=== PATIENT | female | born 1965 | race African-American/Black ===

== ENCOUNTER 2016-10-31 14:06 | Emergency (ER) | payer MEDICAID ==
--- NOTE | 2016-10-31 16:20 | ER Document Report ---
ED Fall - General Chief Complaint: Fall Stated Complaint: FALL TOE PAIN Time Seen by Provider: 10/31/16 15:56 Mode of Arrival: Ambulatory Information source: Patient Notes: 51-year-old female presents to ED for pain and swelling to the right fifth toe and right thumb. She states she fell a week ago and neither 1 of them are improving. She states her most painful swollen and bruised. She states she cannot take ibuprofen as she is allergic to it. She does have an over-the- counter splint that she bought on her right thumb. TRAVEL OUTSIDE OF THE [place] IN LAST 30 DAYS: No - HPI Occurred: Last week Where: Outdoors Context: Tripped Associated symptoms: None Location of injury/pain: Finger - Right thumb, Other - Right fifth toe Quality of pain: Achy, Throbbing Severity: Moderate Pain Level: 3 - Related data Allergies/Adverse Reactions: morphine [Morphine] Allergy (Intermediate, Verified 10/31/16 14:13) Hives ibuprofen [Ibuprofen] Allergy (Verified 10/31/16 14:13) propoxyphene napsylate [From Darvocet-N 100] Allergy (Verified 10/31/16 14:13) Hives Past Medical History - General Information source: Patient - Social History Smoking Status: Former Smoker Cigarette use (# per day): No Chew tobacco use (# tins/day): No Smoking Education Provided: No Frequency of alcohol use: Social Drug Abuse: None Occupation: none Lives with: Alone Family History: CAD, COPD, CVA, DM, Hyperlipidemia, Hypertension, Malignancy, Thyroid Disfunction - Past Medical History Cardiac Medical History: Reports: Hx Hypercholesterolemia, Hx Hypertension Pulmonary Medical History: Reports: Hx Bronchitis EENT Medical History: Reports: None Neurological Medical History: Reports: Hx Cerebrovascular Accident - anuerysm x 2, subarachnoid hemorrhage, Hx Migraine, Other - Aneurysm 3 Endocrine Medical History: Reports: Hx Diabetes Mellitus Type 2 Renal/ Medical History: Reports: None Malignancy Medical History: Reports: Hx Cervical Cancer GI Medical History: Reports: Hx Gastroesophageal Reflux Disease, Hx Colonoscopy , Hx Endoscopy Musculoskeltal Medical History: Reports Hx Arthritis, Reports Hx Fibromyalgia, Reports Hx Musculoskeletal Trauma Skin Medical History: Reports None Psychiatric Medical History: Reports: Hx Anxiety, Hx Depression, Hx Post Traumatic Stress Disorder Traumatic Medical History: Reports: None Infectious Medical History: Reports: None Past Surgical History: Reports: Hx Gynecologic Surgery - ablation, Hx Hysterectomy, Hx Neurologic Surgery, Hx Tubal Ligation - Immunizations Immunizations up to date: No Hx Diphtheria, Pertussis, Tetanus Vaccination: No Review of Systems - Review of Systems Constitutional: No symptoms reported EENT: No symptoms reported Cardiovascular: No symptoms reported Respiratory: No symptoms reported Gastrointestinal: No symptoms reported Genitourinary: No symptoms reported Female Genitourinary: No symptoms reported Musculoskeletal: Other - Swelling to right thumb and right fifth toe Skin: No symptoms reported Hematologic/Lymphatic: No symptoms reported Neurological/Psychological: No symptoms reported -: Yes All other systems reviewed and negative Physical Exam - Vital signs Vitals: Temp Pulse Resp BP Pulse Ox 98.4 F 69 16 158/87 H 100 10/31/16 14:11 10/31/16 14:11 10/31/16 14:11 10/31/16 14:11 10/31/16 14:11 Interpretation: Normal - General General appearance: Appears well, Alert - HEENT Head: Normocephalic, Atraumatic Eyes: Normal Pupils: PERRL - Respiratory Respiratory status: No respiratory distress Chest status: Nontender Breath sounds: Normal Chest palpation: Normal - Cardiovascular Rhythm: Regular Heart sounds: Normal auscultation Murmur: No - Abdominal Inspection: Normal Distension: No distension Bowel sounds: Normal Tenderness: Nontender Organomegaly: No organomegaly - Back Back: Normal, Nontender - Extremities General upper extremity: Normal color, Normal ROM, Normal temperature General lower extremity: Normal color, Normal ROM, Normal temperature, Normal weight bearing. No: Deondre's sign Hand: Tender - Right thumb, Swelling - Right thumb, Other - Right thumb Foot: Tender - Right fifth toe, Ecchymosis - Right fifth toe, Edema - Right fifth toe - Neurological Neuro grossly intact: Yes Cognition: Normal Orientation: AAOx4 Allyson Coma Scale Eye Opening: Spontaneous Allyson Coma Scale Verbal: Oriented Allyson Coma Scale Motor: Obeys Commands Dexter Coma Scale Total: 15 Speech: Normal Motor strength normal: LUE, RUE, LLE, RLE Sensory: Normal - Psychological Associated symptoms: Normal affect, Normal mood - Skin Skin Temperature: Warm Skin Moisture: Dry Skin Color: Normal Course - Vital Signs Vital signs: Temp Pulse Resp BP Pulse Ox 98.2 F 130 H 15 161/90 H 100 10/31/16 18:21 10/31/16 18:21 10/31/16 18:21 10/31/16 18:21 10/31/16 18:21 - Diagnostic Test Radiology reviewed: Image reviewed, Reports reviewed Procedures - Immobilization Right Toe 5th digit Time completed: 17:51 Immobilizer type: Other - yosvany taped 4th and 5th toe for fracture Performed by: Provider Post-Proc Neuro Vasc Exam: Normal Alignment checked and good: Yes Discharge - Discharge Clinical Impression: Fracture of fifth toe, right, closed Qualifiers: Encounter type: initial encounter Qualified Code(s): S92.501A - Displaced unspecified fracture of right lesser toe(s), initial encounter for closed fracture Condition: Stable Disposition: HOME, SELF-CARE Additional Instructions: Fractured Toe You have fractured your toe. Although this fracture doesn't need a cast or splint, emergency evaluation was needed to assess the straightness of the bones and joints. Reduction ("setting") is necessary for toe fractures which are crooked or twisted. A toe fracture will heal in about three weeks. Usually, the fractured toe is taped to the next toe. The second toe acts as a moving splint to protect the broken one. Ice and elevation help during the first 48 hours. You may need crutches at first if walking is painful. When you begin walking, be careful NOT to do things that hurt. If weight bearing is not comfortable within a few days, you may require a special shoe, walking boot, or cast. Call the doctor or return at once if severe swelling, severe pain, or numbness develop in the toe, or if you suspect you may have re-injured it. ICE & ELEVATION: Apply ice packs frequently against the painful area. Many different schedules are recommended, such as "20 minutes on, 20 minutes off" or "one hour ice, two hours rest." If you need to work, you may need to go longer between ice treatments. You should plan to have the area ice packed AT LEAST one- fourth of the time. The ice should be applied over the wrap, tape, or splint, or over a layer of cloth -- not directly against the skin. Some ice bags have a built-in cloth and can be put directly on the skin. Your injured part should be elevated as much as possible over the next 48 hours. Try to keep the injury above the level of the heart. Avoid use of the injured area. Elevation and rest will decrease the swelling. USE OF [id number] IBUPROFEN: Ibuprofen (Advil, Nuprin, Medipren, Motrin IB) is a medication for fever and pain control. In addition, it has anti- inflammatory effects which may be beneficial, especially in the treatment of injuries. It's best to take ibuprofen with food. Persons with ulcer disease or allergy to aspirin should notify their physician of this before taking ibuprofen. Ibuprofen can be given every four to six hours, for a total of four doses daily. Age Pain or fever dose Antiinflammatory dose 6-8 yr 200 mg (1 tab) 200 mg (1 tab) 9-11 yr 200 mg (1 tab) 200-400 mg (1-2 tab) 11-14 yr 200-400 mg (1-2 tab) 400 mg (2 tab) 15-adult 400 mg (2 tab) 600 mg (3 tab) FOLLOW-UP CARE: If you have been referred to a physician for follow-up care, call the physician s office for an appointment as you were instructed or within the next two days. If you experience worsening or a significant change in your symptoms, notify the physician immediately or return to the Emergency Department at any time for re-evaluation. Forms: Elevated Blood Pressure Referrals: EDWARDO LIRIANO DO [ACTIVE STAFF] - Follow up as needed
--- NOTE | 2016-10-31 16:40 | RADIOLOGY REPORT (SQ) ---
EXAM DESCRIPTION: FINGER RIGHT COMPLETED DATE/TIME: 10/31/2016 4:30 pm REASON FOR STUDY: right thumb pain and injury COMPARISON: None. NUMBER OF VIEWS: Three views. TECHNIQUE: AP, lateral, and oblique images acquired of the right thumb. LIMITATIONS: None. FINDINGS: MINERALIZATION: Normal. BONES: No acute fracture or dislocation. No worrisome bone lesions. SOFT TISSUES: No soft tissue swelling. No foreign body. OTHER: No other significant finding. IMPRESSION: NO RADIOGRAPHIC EVIDENCE OF ACUTE INJURY. COMMENT: SITE OF TRAUMA/COMPLAINT MARKED/STAMP COMPLETED: NO. TECHNICAL DOCUMENTATION: JOB ID: [id number] [employer]- All Rights Reserved
--- NOTE | 2016-10-31 16:53 | RADIOLOGY REPORT (SQ) ---
EXAM DESCRIPTION: TOE RIGHT COMPLETED DATE/TIME: 10/31/2016 4:30 pm REASON FOR STUDY: right 5th toe pain and injury COMPARISON: None. NUMBER OF VIEWS: Two views. TECHNIQUE: AP and oblique images acquired of the right fifth toe. LIMITATIONS: None. FINDINGS: MINERALIZATION: Normal. BONES: Nondisplaced fracture midshaft proximal 5th phalanx. JOINTS: No effusions. SOFT TISSUES: No soft tissue swelling. No foreign body. OTHER: No other significant finding. IMPRESSION: Nondisplaced fracture proximal 5th phalanx. COMMENT: SITE OF TRAUMA/COMPLAINT MARKED/STAMP COMPLETED: NO. TECHNICAL DOCUMENTATION: JOB ID: [id number] [employer]- All Rights Reserved
[2016-10-31 18:24] VITALS: BP 161/90
== END 2016-10-31 18:24 | disposition home or self-care (01) ==
LOC: ER 14:06
DX: S92.501A Displaced unspecified fracture of right lesser toe(s), initial encounter for closed fracture (principal); M79.674 Pain in right toe(s); W19.XXXA Unspecified fall, initial encounter; Z87.891 Personal history of nicotine dependence
CPT/HCPCS: 99283

== ENCOUNTER 2016-12-12 18:54 | Emergency (ER) | payer MEDICAID ==
[2016-12-12 19:13] VITALS: BP 140/95
--- NOTE | 2016-12-12 21:02 | EKG REPORT ---
SEVERITY:- BORDERLINE ECG - SINUS RHYTHM PROBABLE LEFT ATRIAL ABNORMALITY BORDERLINE R WAVE PROGRESSION, ANTERIOR LEADS : Confirmed by: Radha Branch MD 12-Dec-2016 21:02:05
== END 2016-12-13 01:01 | disposition left against medical advice (07) ==
LOC: ER 18:54
DX: Z53.9 Procedure and treatment not carried out, unspecified reason (principal); R07.9 Chest pain, unspecified
CPT/HCPCS: 93005; 93010

== ENCOUNTER 2016-12-13 00:57 | Emergency (ER) | payer MEDICAID ==
[2016-12-13 01:11] VITALS: BP 150/82
[2016-12-13] MEDS ORDERED: ACETAMINOPHEN 325 MG TABLET PO ONE (01:52)
--- NOTE | 2016-12-13 02:03 | ER Document Report ---
ED General - General Chief Complaint: Headache Stated Complaint: HEADACHE Time Seen by Provider: 12/13/16 01:38 TRAVEL OUTSIDE OF THE [place] IN LAST 30 DAYS: No - HPI Notes: Patient is a 51-year-old female who presents to the ED complaining of nasal congestion/discharge, dry cough that is nonproductive, fevers, body ache, and chills 2 days. Patient states that she has also had an intermittent headache. Patient states that her headache resembles the same headaches that she has had in the past since discovery and management of 2 out of the 3 brain aneurysms. Patient states that she does have routine follow-up for her remaining aneurysm that they could not repair in her brain. She is still eating and drinking without any difficulties. She has not been using any over- the-counter meds for her symptoms. Denies any headache, fever, head injury, neck pain, changes in vision/speech/mentation/hearing, sore throat, chest pain, palpitations, syncope, shortness of breath, wheeze, dyspnea, abdominal pain, nausea/vomiting/diarrhea, urinary retention, dysuria, hematuria, loss of control of bowel or bladder, numbness/tingling, saddle anesthesia, muscle paralysis/weakness, or rash. - Related Data Allergies/Adverse Reactions: morphine [Morphine] Allergy (Intermediate, Verified 12/12/16 19:10) Hives ibuprofen [Ibuprofen] Allergy (Verified 12/12/16 19:10) propoxyphene napsylate [From Darvocet-N 100] Allergy (Verified 12/12/16 19:10) Hives Past Medical History - Social History Smoking Status: Unknown if Ever Smoked Family History: CAD, COPD, CVA, DM, Hyperlipidemia, Hypertension, Malignancy, Thyroid Disfunction Patient has suicidal ideation: No Patient has homicidal ideation: No - Past Medical History Cardiac Medical History: Reports: Hx Hypercholesterolemia, Hx Hypertension Pulmonary Medical History: Reports: Hx Bronchitis Neurological Medical History: Reports: Hx Cerebrovascular Accident - anuerysm x 2, subarachnoid hemorrhage, Hx Migraine Endocrine Medical History: Reports: Hx Diabetes Mellitus Type 2 Renal/ Medical History: Denies: Hx Peritoneal Dialysis Malignancy Medical History: Reports: Hx Cervical Cancer GI Medical History: Reports: Hx Gastroesophageal Reflux Disease, Hx Colonoscopy , Hx Endoscopy Musculoskeltal Medical History: Reports Hx Arthritis, Reports Hx Fibromyalgia, Reports Hx Musculoskeletal Trauma Psychiatric Medical History: Reports: Hx Anxiety, Hx Depression, Hx Post Traumatic Stress Disorder Past Surgical History: Reports: Hx Gynecologic Surgery - ablation, Hx Hysterectomy, Hx Neurologic Surgery, Hx Tubal Ligation - Immunizations Immunizations up to date: No Hx Diphtheria, Pertussis, Tetanus Vaccination: No Review of Systems - Review of Systems Notes: REVIEW OF SYSTEMS: CONSTITUTIONAL : see hpi EENT: Denies eye, ear, throat, or mouth pain or symptoms. Denies nasal or sinus congestion or discharge. Denies throat, tongue, or mouth swelling or difficulty swallowing. CARDIOVASCULAR: Denies chest pain. Denies palpitations or racing or irregular heart beat. Denies ankle edema. RESPIRATORY: see hpi GASTROINTESTINAL: Denies abdominal pain or distention. Denies nausea, vomiting , or diarrhea. Denies blood in vomitus, stools, or per rectum. Denies black, tarry stools. Denies constipation. GENITOURINARY: Denies difficulty urinating, painful urination, burning, frequency, blood in urine, or discharge. MUSCULOSKELETAL: see hpi. +muscle aches. SKIN: Denies rash, lesions or sores. NEUROLOGICAL: Denies confusion or altered mental status. Denies passing out or loss of consciousness. Denies dizziness or lightheadedness. Denies headache. Denies weakness or paralysis or loss of use of either side. Denies problems with gait or speech. Denies sensory loss, numbness, or tingling. ALL OTHER SYSTEMS REVIEWED AND NEGATIVE. Dictation was performed using [employer] voice recognition software Physical Exam - Vital signs Vitals: Temp Pulse Resp BP Pulse Ox 99.0 F 84 18 150/82 H 100 12/13/16 01:05 12/13/16 01:05 12/13/16 01:05 12/13/16 01:05 12/13/16 01:05 Notes: PHYSICAL EXAMINATION: GENERAL: Well-appearing, well-nourished and in no acute distress. A&Ox4 HEAD: Atraumatic, normocephalic. Non-tender. EYES: Pupils equal round and reactive to light, extraocular movements intact, sclera anicteric, conjunctiva are normal. Funduscopic unremarkable, but limited w/o dilatation of the eyes. ENT: EAC clear b/l. TM's intact b/l without erythema, fluid, or perforation. Nares patent and with clear discharge. oropharynx clear without exudates. No tonsilar hypertrophy or erythema. Moist mucous membranes. No sinus tenderness. Uvula midline. No palatine shift. No tongue protrusion. NECK: Normal range of motion, supple without lymphadenopathy. No rigidity/ meningismus. LUNGS: Breath sounds clear to auscultation bilaterally and equal. No wheezes rales or rhonchi. HEART: Regular rate and rhythm without murmurs, rubs, gallops. Musculoskeletal: Ext b/l: FROM to passive/active. Strength 5+/5. No focal deficits. Extremities: No cyanosis, clubbing, or edema b/l. Peripheral pulses 2+. Capillary refill less than 3 seconds. NEUROLOGICAL: NIH 0. MMSE intact. Cranial nerves grossly intact. Normal speech, normal gait. Normal sensory, motor exams. CHAR's intact. Pronator drift negative. Heel:reynolds, finger:nose wnl. PSYCH: Normal mood, normal affect. SKIN: Warm, Dry, normal turgor, no rashes or lesions noted. Course - Re-evaluation Re-evalutation: 12/13/16 03:03 Patient is an afebrile, well-hydrated, 51-year-old female who presents to the ED with a right lower lobe pneumonia. Vitals are stable. PE otherwise unremarkable. X-rays results as above. Rapid flu was negative. Tylenol was given p.o. today. I will send her home with a prescription for Levaquin to take as directed. Conservative measures otherwise for symptoms. Recheck with your PCM in 2-3 days. Return to the ED with any worsening/concerning symptoms otherwise as reviewed in discharge. Low suspicion for any acute glaucoma, temporal arteritis, meningitis, intracranial hemorrhage, ischemic stroke, ACS, PE, pneumothorax, pericarditis, dissection, sepsis, or fracture at this time. Patient is aware that his condition can change from initial presentation and that she needs to monitor symptoms closely for any acute changes. Patient is in agreement with discharge plan. - Vital Signs Vital signs: Temp Pulse Resp BP Pulse Ox 101.9 F H 84 18 150/82 H 100 12/13/16 01:49 12/13/16 01:05 12/13/16 01:05 12/13/16 01:05 12/13/16 01:05 Discharge - Discharge Clinical Impression: Right lower lobe pneumonia Qualifiers: Pneumonia type: due to unspecified organism Qualified Code(s): J18.1 - Lobar pneumonia, unspecified organism Condition: Stable Disposition: HOME, SELF-CARE Instructions: Headache ([facility]), Pneumonia ([facility]), Levofloxacin, Follow-Up Care ( [facility]) Additional Instructions: Maintain adequate fluid intake Take meds as directed tylenol as needed Monitor symptoms closely over the counter cold medication as needed for symptoms Humidified air may help F/u: with your PCM in 2-3 days for a recheck Return to the ED with any fever, worsening pain, chest pain, palpitations, syncope, worsening THOMPSON, neck pain/stiffness, changes in mentation/behavior/speech /vision/hearing, shortness of breath, wheezing, drooling, trouble swallowing/ breathing, abdominal pain, n/v/d, rash, or worsening/concerning symptoms otherwise. Prescriptions: Levofloxacin [Levaquin 750 mg Tablet] 750 mg PO DAILY #5 tablet Forms: Elevated Blood Pressure Referrals: [facility] [Provider Group] - Follow up as needed [facility] [Provider Group] - Follow up as needed [facility] [Provider Group] - Follow up as needed
--- NOTE | 2016-12-13 03:02 | RADIOLOGY REPORT (SQ) ---
EXAM DESCRIPTION: CHEST PA/LAT COMPLETED DATE/TIME: 12/13/2016 2:30 am REASON FOR STUDY: cough COMPARISON: None. EXAM PARAMETERS: NUMBER OF VIEWS: two views TECHNIQUE: Digital Frontal and Lateral radiographic views of the chest acquired. RADIATION DOSE: NA LIMITATIONS: none FINDINGS: LUNGS AND PLEURA: Small airspace patchiness of the right lower lobe. MEDIASTINUM AND HILAR STRUCTURES: No masses or contour abnormalities. HEART AND VASCULAR STRUCTURES: Heart normal size. No evidence for failure. BONES: No acute findings. HARDWARE: Right upper abdominal clips. OTHER: No other significant finding. IMPRESSION: Small right lower lobar pneumonia. TECHNICAL DOCUMENTATION: JOB ID: [id number] [employer]- All Rights Reserved
[2016-12-13] MEDS ORDERED: LEVOFLOXACIN 750 MG TABLET PO ONE (03:10)
== END 2016-12-13 03:57 | disposition home or self-care (01) ==
LOC: ER 00:57
DX: J18.1 Lobar pneumonia, unspecified organism (principal); R51 Headache; R09.81 Nasal congestion; E78.00 Pure hypercholesterolemia, unspecified; I10 Essential (primary) hypertension; E11.9 Type 2 diabetes mellitus without complications; Z88.6 Allergy status to analgesic agent; Z86.73 Personal history of transient ischemic attack (TIA), and cerebral infarction without residual deficits; Z85.41 Personal history of malignant neoplasm of cervix uteri; Z90.710 Acquired absence of both cervix and uterus
CPT/HCPCS: 99284; 87804; 71020; J3490 ×2

== ENCOUNTER 2016-12-13 16:10 | Emergency (ER) | payer MEDICAID ==
[2016-12-13 16:40] VITALS: BP 150/100
[2016-12-13] MEDS ORDERED: ONDANSETRON HCL INJ/PF 4 MG/2 ML SDV IV ONE (18:15)
[2016-12-13] MEDS ORDERED: HYDROMORPHONE HCL INJ/PF 2 MG/ML AMPULE IV ONE (18:15)
[2016-12-13] MEDS ORDERED: NORMAL SALINE 1000 ML 1,000 ML IV ONE (18:15)
--- NOTE | 2016-12-13 18:17 | ER Document Report ---
ED Medical Screen (RME) - General Chief Complaint: Breathing Difficulty Stated Complaint: BODY PAIN Time Seen by Provider: 12/13/16 18:15 Notes: Patient was seen and discharged this morning at approximately 4 AM. At that time she was diagnosed with pneumonia. She returns stating that she is having severe generalized body aches and nausea. She also states she is having diarrhea and is unable to control her urine. In addition she states that she is short of breath. TRAVEL OUTSIDE OF THE [place] IN LAST 30 DAYS: No - Related Data Allergies/Adverse Reactions: morphine [Morphine] Allergy (Intermediate, Verified 12/13/16 16:38) Hives ibuprofen [Ibuprofen] Allergy (Verified 12/13/16 16:38) propoxyphene napsylate [From Darvocet-N 100] Allergy (Verified 12/13/16 16:38) Hives Past Medical History - Social History Chew tobacco use (# tins/day): No Frequency of alcohol use: Occasional Drug Abuse: Marijuana - Past Medical History Cardiac Medical History: Reports: Hx Hypercholesterolemia, Hx Hypertension Pulmonary Medical History: Reports: Hx Bronchitis Neurological Medical History: Reports: Hx Cerebrovascular Accident - anuerysm x 2, subarachnoid hemorrhage, Hx Migraine Endocrine Medical History: Reports: Hx Diabetes Mellitus Type 2 Renal/ Medical History: Denies: Hx Peritoneal Dialysis Malignancy Medical History: Reports: Hx Cervical Cancer GI Medical History: Reports: Hx Gastroesophageal Reflux Disease, Hx Colonoscopy , Hx Endoscopy Musculoskeltal Medical History: Reports Hx Arthritis, Reports Hx Fibromyalgia, Reports Hx Musculoskeletal Trauma Psychiatric Medical History: Reports: Hx Anxiety, Hx Depression, Hx Post Traumatic Stress Disorder Past Surgical History: Reports: Hx Gynecologic Surgery - ablation, Hx Hysterectomy, Hx Neurologic Surgery, Hx Tubal Ligation - Immunizations Immunizations up to date: No Hx Diphtheria, Pertussis, Tetanus Vaccination: No Physical Exam - Vital signs Vitals: Temp Pulse Resp BP Pulse Ox 99.6 F 106 H 18 150/100 H 95 12/13/16 16:38 12/13/16 16:38 12/13/16 16:38 12/13/16 16:38 12/13/16 16:38 Course - Vital Signs Vital signs: Temp Pulse Resp BP Pulse Ox 99.6 F 106 H 18 150/100 H 95 12/13/16 16:38 12/13/16 16:38 12/13/16 16:38 12/13/16 16:38 12/13/16 16:38
--- NOTE | 2016-12-13 18:56 | RADIOLOGY REPORT (SQ) ---
EXAM DESCRIPTION: CHEST PA/LAT COMPLETED DATE/TIME: 12/13/2016 6:34 pm REASON FOR STUDY: fever/cough COMPARISON: 12/13/2016 EXAM PARAMETERS: NUMBER OF VIEWS: two views TECHNIQUE: Digital Frontal and Lateral radiographic views of the chest acquired. RADIATION DOSE: NA LIMITATIONS: none FINDINGS: LUNGS AND PLEURA: There is an increasing infiltrate in the right base posteriorly. MEDIASTINUM AND HILAR STRUCTURES: No masses or contour abnormalities. HEART AND VASCULAR STRUCTURES: Heart normal size. No evidence for failure. BONES: No acute findings. HARDWARE: None in the chest. OTHER: No other significant finding. IMPRESSION: Right lower lobe pneumonia. TECHNICAL DOCUMENTATION: JOB ID: [id number] [employer]- All Rights Reserved
== END 2016-12-13 19:00 | disposition left against medical advice (07) ==
LOC: ER 16:10
DX: R06.00 Dyspnea, unspecified (principal); M79.1 Myalgia; E78.00 Pure hypercholesterolemia, unspecified; I10 Essential (primary) hypertension; E11.9 Type 2 diabetes mellitus without complications; Z88.6 Allergy status to analgesic agent; Z86.73 Personal history of transient ischemic attack (TIA), and cerebral infarction without residual deficits; Z85.41 Personal history of malignant neoplasm of cervix uteri; Z90.710 Acquired absence of both cervix and uterus
CPT/HCPCS: 71020; 99284

== ENCOUNTER 2017-03-09 19:01 | Emergency (ER) | payer SELFPAY ==
[2017-03-09] MEDS ORDERED: PROMETHAZINE HCL INJ 25 MG/1 ML VIAL IV ONE (19:29)
[2017-03-09] MEDS ORDERED: NORMAL SALINE 1000 ML 1,000 ML IV ONE (19:29)
--- NOTE | 2017-03-09 19:31 | ER Document Report ---
ED Medical Screen (RME) - General Chief Complaint: Headache >24 hrs old Stated Complaint: HEADACHE Time Seen by Provider: 03/09/17 19:29 Notes: Patient states she has a history of a ruptured aneurysm as well as 2 other aneurysms that have been coiled. She states she has a third aneurysm that has not been coiled that is currently being watched with scans every year. She states she has headaches chronically but lately they have been worse. She states that she did recently lose her insurance and no longer has her Percocet or Xanax. She states she also has fibromyalgia and takes Percocet "for a lot of reasons". She states when she comes to the hospital she needs Phenergan and Dilaudid for her pain. TRAVEL OUTSIDE OF THE [place] IN LAST 30 DAYS: No - Related Data Allergies/Adverse Reactions: morphine [Morphine] Allergy (Intermediate, Verified 03/09/17 19:02) Hives ibuprofen [Ibuprofen] Allergy (Verified 03/09/17 19:02) propoxyphene napsylate [From Darvocet-N 100] Allergy (Verified 03/09/17 19:02) Hives Past Medical History - Social History Frequency of alcohol use: Occasional Drug Abuse: Marijuana - Past Medical History Cardiac Medical History: Reports: Hx Hypercholesterolemia, Hx Hypertension Pulmonary Medical History: Reports: Hx Bronchitis Neurological Medical History: Reports: Hx Cerebrovascular Accident - anuerysm x 2, subarachnoid hemorrhage, Hx Migraine Endocrine Medical History: Reports: Hx Diabetes Mellitus Type 2 Renal/ Medical History: Denies: Hx Peritoneal Dialysis Malignancy Medical History: Reports: Hx Cervical Cancer GI Medical History: Reports: Hx Gastroesophageal Reflux Disease, Hx Colonoscopy , Hx Endoscopy Musculoskeltal Medical History: Reports Hx Arthritis, Reports Hx Fibromyalgia, Reports Hx Musculoskeletal Trauma Psychiatric Medical History: Reports: Hx Anxiety, Hx Depression, Hx Post Traumatic Stress Disorder Past Surgical History: Reports: Hx Gynecologic Surgery - ablation, Hx Hysterectomy, Hx Neurologic Surgery, Hx Tubal Ligation - Immunizations Immunizations up to date: No Hx Diphtheria, Pertussis, Tetanus Vaccination: No Physical Exam - Vital signs Vitals: Temp Pulse Resp BP Pulse Ox 98.5 F 67 18 189/96 H 100 03/09/17 19:07 03/09/17 19:07 03/09/17 19:07 03/09/17 19:07 03/09/17 19:07 Course - Vital Signs Vital signs: Temp Pulse Resp BP Pulse Ox 98.5 F 67 18 189/96 H 100 03/09/17 19:07 03/09/17 19:07 03/09/17 19:07 03/09/17 19:07 03/09/17 19:07
[2017-03-09] MEDS ORDERED: METOCLOPRAMIDE HCL INJ/PF 10 MG/2 ML SDV IV ONE (19:41)
--- NOTE | 2017-03-09 20:32 | ER Document Report ---
ED General - General Chief Complaint: Headache >24 hrs old Stated Complaint: HEADACHE Time Seen by Provider: 03/09/17 19:29 Notes: 11-year-old female with chronic headache syndromes as well as a history of ruptured aneurysm now coiled presents with gradual onset headache intermittent for 10 days sometimes better with Excedrin. Nonpulsatile. Also has neck pain but no stiffness. No fevers. When I come in the room she is eating chicken. She has some nausea. Incidentally, she stopped taking Xanax and oxycodone secondary to switching practices for pain management about a week ago. TRAVEL OUTSIDE OF THE [place] IN LAST 30 DAYS: No - Related Data Allergies/Adverse Reactions: morphine [Morphine] Allergy (Intermediate, Verified 03/09/17 19:02) Hives ibuprofen [Ibuprofen] Allergy (Verified 03/09/17 19:02) propoxyphene napsylate [From Darvocet-N 100] Allergy (Verified 03/09/17 19:02) Hives Past Medical History - Social History Smoking Status: Current Every Day Smoker Frequency of alcohol use: Occasional Drug Abuse: Marijuana Family History: CAD, COPD, CVA, DM, Hyperlipidemia, Hypertension, Malignancy, Thyroid Disfunction Patient has suicidal ideation: No Patient has homicidal ideation: No - Past Medical History Cardiac Medical History: Reports: Hx Hypercholesterolemia, Hx Hypertension Pulmonary Medical History: Reports: Hx Bronchitis Neurological Medical History: Reports: Hx Cerebrovascular Accident - anuerysm x 2, subarachnoid hemorrhage, Hx Migraine Endocrine Medical History: Reports: Hx Diabetes Mellitus Type 2 Renal/ Medical History: Denies: Hx Peritoneal Dialysis Malignancy Medical History: Reports: Hx Cervical Cancer GI Medical History: Reports: Hx Gastroesophageal Reflux Disease, Hx Colonoscopy , Hx Endoscopy Musculoskeltal Medical History: Reports Hx Arthritis, Reports Hx Fibromyalgia, Reports Hx Musculoskeletal Trauma Psychiatric Medical History: Reports: Hx Anxiety, Hx Depression, Hx Post Traumatic Stress Disorder Past Surgical History: Reports: Hx Gynecologic Surgery - ablation, Hx Hysterectomy, Hx Neurologic Surgery, Hx Tubal Ligation - Immunizations Immunizations up to date: No Hx Diphtheria, Pertussis, Tetanus Vaccination: No Review of Systems - Review of Systems Notes: REVIEW OF SYSTEMS GEN: Denies fever, chills, weight loss ENT: Denies sore throat, nasal discharge, ear pain EYES: Denies blurry vision, eye pain, discharge CV: Denies chest pain, palpitations, edema RESP: Denies cough, shortness of breath, wheezing GI: D nausea MSK: Denies joint pain/swelling, edema, SKIN: Denies rash, skin lesions LYMPH: Denies swollen glands/lymph nodes NEURO: Headache PSYCH: Denies depression, suicidal or homicidal ideation PHYSICAL EXAMINATION General: No acute distress, well-nourished eating food on my arrival. Head: Atraumatic, normocephalic ENT: Mouth normal, oropharynx moist, no exudates or tonsillar enlargement Eyes: Conjunctiva normal, pupils equal, lids normal Neck: No JVD, supple, no guarding CVS: Normal rate, regular rhythm, no murmurs Resp: No resp distress, equal and normal breath sounds bilaterally GI: Nondistended, soft, no tenderness to palpation, no rebound or guarding Ext: No deformities, no edema, normal range of motion in upper and lower ext Back: No CVA or midline TTP Skin: No rash, warm Lymphatic: No lymphadeopathy noted Neuro: Awake, alert. Face symmetric. GCS 15. Nerves II through XII intact. No pronator drift. Grossly normal strength and sensation in all 4 extremity's. Physical Exam - Vital signs Vitals: Temp Pulse Resp BP Pulse Ox 98.5 F 67 18 189/96 H 100 03/09/17 19:07 03/09/17 19:07 03/09/17 19:07 03/09/17 19:07 03/09/17 19:07 Course - Re-evaluation Re-evalutation: 03/09/17 20:30 New-onset headache with no serious features for a week and a half in the setting of medication withdrawal. Protected cerebral aneurysms. Chronic headache syndrome. Neurologic exam is normal. I have very low suspicion of meningitis or ruptured aneurysm today. He was CT to make sure there is no mass but I do not think she needs a lumbar puncture. She is eating food comfortably after receiving a dose of antiemetics. She is negative she will be discharged home based on her current situation. I have discussed with the patient there likely diagnosis, aftercare plan, follow-up plans and my usual and customary return precautions. They verbalized understanding of this. 03/09/17 20:57 CT negative. - Vital Signs Vital signs: Temp Pulse Resp BP Pulse Ox 98.5 F 67 18 189/96 H 100 03/09/17 19:07 03/09/17 19:07 03/09/17 19:07 03/09/17 19:07 03/09/17 19:07 - Diagnostic Test Radiology reviewed: Image reviewed, Reports reviewed Discharge - Discharge Clinical Impression: Chronic headache Qualifiers: Headache type: unspecified Intractability: not intractable Qualified Code(s): R51 - Headache Disposition: HOME, SELF-CARE Instructions: Headache ([facility]) Additional Instructions: These follow-up with her primary care provider or pain management to discuss medications.
--- NOTE | 2017-03-09 20:44 | RADIOLOGY REPORT (SQ) ---
EXAM DESCRIPTION: CT HEAD WITHOUT COMPLETED DATE/TIME: 03/09/2017 8:33 pm REASON FOR STUDY: THOMPSON h/o aneurisms COMPARISON: 05/14/2012 TECHNIQUE: Axial images acquired through the brain without intravenous contrast. Images reviewed wi th bone, brain and subdural windows. Images stored on PACS. All CT scanners at this facility use dose modulation, iterative reconstruction, and/or weight based d osing when appropriate to reduce radiation dose to as low as reasonably achievable (ALARA). [facility]: Dose Right [facility]: CareDose [facility]: Dose Right [facility]: Teradose 4D [facility]: IMT RADIATION DOSE: mGy. LIMITATIONS: None. FINDINGS: VENTRICLES: Normal size and contour. CEREBRUM: No masses. No hemorrhage. Aneurysm clips noted. No midline shift. No evidence for acute infarction. Preserved gruber/white matter differentiation. Few scattered areas of low density in the white matter. CEREBELLUM: No masses. No hemorrhage. No alteration of density. No evidence for acute infarction. EXTRAAXIAL SPACES: No fluid collections. No masses. ORBITS AND GLOBE: No intra- or extraconal masses. Normal contour of globe without masses. CALVARIUM: No fracture. PARANASAL SINUSES: No fluid or mucosal thickening. SOFT TISSUES: No mass or hematoma. OTHER: Trace fluid in the left mastoid. IMPRESSION: No acute intracranial findings. EVIDENCE OF ACUTE STROKE: NO. COMMENT: Quality ID # [id number]: Final reports with documentation of one or more dose reduction techniques (e.g., Automated exposure control, adjustment of the mA and/or kV according to patient size, use of iterative reconstruction technique) TECHNICAL DOCUMENTATION: JOB ID: [id number] [place]-72 2010 [email or web address]- All Rights Reserved
[2017-03-09 21:05] VITALS: BP 189/87
== END 2017-03-09 21:05 | disposition home or self-care (01) ==
LOC: ER 19:01
DX: G44.89 Other headache syndrome (principal); F19.939 Other psychoactive substance use, unspecified with withdrawal, unspecified; R11.0 Nausea; I10 Essential (primary) hypertension; Z88.5 Allergy status to narcotic agent; Z88.6 Allergy status to analgesic agent; Z82.3 Family history of stroke; Z86.73 Personal history of transient ischemic attack (TIA), and cerebral infarction without residual deficits; F17.200 Nicotine dependence, unspecified, uncomplicated; E11.9 Type 2 diabetes mellitus without complications; Z85.41 Personal history of malignant neoplasm of cervix uteri
CPT/HCPCS: 99283; 96361; 96374; 70450; J2765; J7030

== ENCOUNTER 2017-05-01 05:55 | Emergency (ER) | payer OTHER ==
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
[2017-05-01] MEDS ORDERED: HYDROMORPHONE HCL INJ/PF 2 MG/ML AMPULE IV ONE (07:05)
[2017-05-01 07:23] LABS: ABSOLUTE LYMPHOCYTES (AUTO) 2.3 10^3/uL (0.5-4.7); ABSOLUTE MONOCYTES (AUTO) 0.4 10^3/uL (0.1-1.4); ABSOLUTE NEUT (AUTO) 3.8 10^3/uL (1.7-8.2); BASOPHILS % (AUTO) 0.7 % (0-2); EOSINOPHILS % (AUTO) 0.7 % (0-6); HEMATOCRIT 44.3 % (36.0-47.0); HEMOGLOBIN 14.9 g/dL (12.0-15.5); LYMPHOCYTES % (AUTO) 35.1 % (13-45); MEAN CORPUSCULAR HEMOGLOBIN 28.4 pg (27.0-33.4); MEAN CORPUSCULAR HGB CONC 33.5 g/dL (32.0-36.0); MEAN CORPUSCULAR VOLUME 85 fl (80-97); MONOCYTES % (AUTO) 6.4 % (3-13); PLATELET COUNT 136 10^3/uL (150-450); RED BLOOD COUNT 5.23 10^6/uL (3.72-5.28); RED CELL DISTRIBUTION WIDTH 13.5 % (11.5-14.0); SEGMENTED NEUTROPHILS % (AUTO) 57.1 % (42-78); TOTAL CELLS COUNTED % (AUTO) 100 %; WHITE BLOOD COUNT 6.6 10^3/uL (4.0-10.5)
[2017-05-01 07:40] LABS: ALANINE AMINOTRANSFERASE 13 U/L (9-52); ALKALINE PHOSPHATASE 68 U/L (38-126); ANION GAP 7 (5-19); ASPARTATE AMINO TRANSFERASE 20 U/L (14-36); BILIRUBIN,DIRECT 0.4 mg/dL (0.0-0.4); BILIRUBIN,TOTAL 0.5 mg/dL (0.2-1.3); BLOOD UREA NITROGEN 8 mg/dL (7-20); CALCIUM 9.9 mg/dL (8.4-10.2); CARBON DIOXIDE 27 mmol/L (22-30); CHLORIDE 108 mmol/L (98-107); GLUCOSE 100 mg/dL (75-110); SODIUM 142.4 mmol/L (137-145); TOTAL PROTEIN 6.7 g/dL (6.3-8.2)
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
[2017-05-01 09:39] VITALS: BP 160/89
== END 2017-05-01 09:39 | disposition home or self-care (01) ==
LOC: ER 05:55
DX: R51 Headache (principal); I10 Essential (primary) hypertension; V87.7XXA Person injured in collision between other specified motor vehicles (traffic), initial encounter; Z86.79 Personal history of other diseases of the circulatory system
CPT/HCPCS: 99284; 96374; 36415; 85025; 80053; 70496; J1170

== ENCOUNTER 2017-05-24 11:59 | Emergency (ER) | payer OTHER ==
[2017-05-24] MEDS ORDERED: ACETAMINOPHEN 325 MG TABLET PO ONE (12:07)
--- NOTE | 2017-05-24 12:53 | ER Document Report ---
HPI - HPI Patient complains to provider of: fell through heat vent Onset: Just prior to arrival Onset/Duration: Sudden Pain Level: 3 Context: 51 yo female stepped and sank through heating floor grate prior to arrival, Scraping lateral left lower leg, injuring right arm, left foot and left knee. Tetanus is not current. Associated Symptoms: None Exacerbated by: Movement Relieved by: Denies Similar symptoms previously: No Recently seen / treated by doctor: No - ROS ROS below otherwise negative: Yes Systems Reviewed and Negative: Yes All other systems reviewed and negative - REPRODUCTIVE Reproductive: DENIES: : - MUSCULOSKELETAL Musculoskeletal: REPORTS: Extremity pain Past Medical History - General Information source: Patient - Social History Smoking Status: Current Every Day Smoker Frequency of alcohol use: Occasional Drug Abuse: Marijuana Family History: CAD, COPD, CVA, DM, Hyperlipidemia, Hypertension, Malignancy, Thyroid Disfunction Patient has suicidal ideation: No Patient has homicidal ideation: No - Past Medical History Cardiac Medical History: Reports: Hx Hypercholesterolemia, Hx Hypertension Pulmonary Medical History: Reports: Hx Bronchitis Neurological Medical History: Reports: Hx Cerebrovascular Accident - anuerysm x 2, subarachnoid hemorrhage, Hx Migraine Endocrine Medical History: Reports: Hx Diabetes Mellitus Type 2 Renal/ Medical History: Denies: Hx Peritoneal Dialysis Malignancy Medical History: Reports: Hx Cervical Cancer GI Medical History: Reports: Hx Gastroesophageal Reflux Disease, Hx Colonoscopy , Hx Endoscopy Musculoskeltal Medical History: Reports Hx Arthritis, Reports Hx Fibromyalgia, Reports Hx Musculoskeletal Trauma Psychiatric Medical History: Reports: Hx Anxiety, Hx Depression, Hx Post Traumatic Stress Disorder Past Surgical History: Reports: Hx Gynecologic Surgery - ablation, Hx Hysterectomy, Hx Neurologic Surgery, Hx Tubal Ligation - Immunizations Immunizations up to date: No Hx Diphtheria, Pertussis, Tetanus Vaccination: No Vertical Provider Document - CONSTITUTIONAL Agree With Documented VS: Yes Exam Limitations: No Limitations General Appearance: No Apparent Distress - INFECTION CONTROL TRAVEL OUTSIDE OF THE [place] IN LAST 30 DAYS: No - HEENT HEENT: Atraumatic, Normocephalic - NECK Neck: Supple - RESPIRATORY Respiratory: Breath Sounds Normal, No Respiratory Distress O2 Sat by Pulse Oximetry: 96 - CARDIOVASCULAR Cardiovascular: Regular Rate, Regular Rhythm - GI/ABDOMEN Gastrointestinal: Abdomen Soft, Abdomen Non-Tender - MUSCULOSKELETAL/EXTREMETIES Musculoskeletal/Extremeties: MAEW, FROM, Tender - mild tender right upper arm, FROM. left knee and left foot minimally tender, abrasion left lateral lower leg.. negative: Edema, Eccymosis - NEURO Level of Consciousness: Awake, Alert - DERM Integumentary: Warm, Dry Course - Re-evaluation Re-evalutation: 05/24/17 14:14 X-rays are negative 05/24/17 14:22 pt did not take motrin, allergic to it. has tramadol at home, "makes her sick", she will get ride home, told her I would give her I pain pill here, use tylenol and heat. - Vital Signs Vital signs: Temp Pulse Resp BP Pulse Ox 97.8 F 58 L 16 162/88 H 96 05/24/17 12:16 05/24/17 12:16 05/24/17 12:16 05/24/17 12:16 05/24/17 12:16 Discharge - Discharge Clinical Impression: Abrasion, arm strain, contusion Fall Qualifiers: Encounter type: initial encounter Qualified Code(s): W19.XXXA - Unspecified fall, initial encounter Injury of left knee, leg ankle and foot Qualifiers: Encounter type: initial encounter Qualified Code(s): S89.92XA - Unspecified injury of left lower leg, initial encounter Condition: Good Disposition: HOME, SELF-CARE Instructions: Abrasions ([facility]), Acetaminophen, Contusion ([facility]), Muscle Strain ( [facility]), Tetanus Immunization Given ([facility]) Additional Instructions: tylenol up [id number] mg per day expect to be more sore tomorrow to er any concerns, expect to hurt more tomorrow Forms: Return to Work
[2017-05-24] MEDS ORDERED: IBUPROFEN 800 MG TABLET PO ONE (12:59)
[2017-05-24] MEDS ORDERED: DIPH/PERTUSS(ACELL)/TETANUS VAC/PF 0.5 ML SYR (>=10YO) IM ONE (13:02)
--- NOTE | 2017-05-24 13:52 | RADIOLOGY REPORT (SQ) ---
EXAM DESCRIPTION: ELBOW RIGHT OVER 2 VIEWS; FOOT LEFT COMPLETE; L SPINE WHOLE; TIBIA FIBULA LEFT; SH OULDER RIGHT 2 OR MORE VIEWS COMPLETED DATE/TIME: 05/24/2017 1:38 pm REASON FOR STUDY: fall COMPARISON: None. FINDINGS: Three views right shoulder: Normal. Four views right elbow: No evidence of displaced fracture or dislocation. No joint effusion. Five views lumbosacral spine: No malalignment or fracture. Two views left tibia and fibula: Soft tissue swelling about the ankle with potential old fracture de formities. No acute abnormality. Three views left foot: Normal. IMPRESSION: No radiographic evidence of acute fracture of the right shoulder, right elbow, lumbosacr al spine, left leg or left foot. TECHNICAL DOCUMENTATION: JOB ID: [id number] Reading location - IP/workstation name: [email or web address]
--- NOTE | 2017-05-24 13:52 | RADIOLOGY REPORT (SQ) ---
EXAM DESCRIPTION: ELBOW RIGHT OVER 2 VIEWS; FOOT LEFT COMPLETE; L SPINE WHOLE; TIBIA FIBULA LEFT; SH OULDER RIGHT 2 OR MORE VIEWS COMPLETED DATE/TIME: 05/24/2017 1:38 pm REASON FOR STUDY: fall COMPARISON: None. FINDINGS: Three views right shoulder: Normal. Four views right elbow: No evidence of displaced fracture or dislocation. No joint effusion. Five views lumbosacral spine: No malalignment or fracture. Two views left tibia and fibula: Soft tissue swelling about the ankle with potential old fracture de formities. No acute abnormality. Three views left foot: Normal. IMPRESSION: No radiographic evidence of acute fracture of the right shoulder, right elbow, lumbosacr al spine, left leg or left foot. TECHNICAL DOCUMENTATION: JOB ID: [id number] Reading location - IP/workstation name: [email or web address]
--- NOTE | 2017-05-24 13:52 | RADIOLOGY REPORT (SQ) ---
EXAM DESCRIPTION: ELBOW RIGHT OVER 2 VIEWS; FOOT LEFT COMPLETE; L SPINE WHOLE; TIBIA FIBULA LEFT; SH OULDER RIGHT 2 OR MORE VIEWS COMPLETED DATE/TIME: 05/24/2017 1:38 pm REASON FOR STUDY: fall COMPARISON: None. FINDINGS: Three views right shoulder: Normal. Four views right elbow: No evidence of displaced fracture or dislocation. No joint effusion. Five views lumbosacral spine: No malalignment or fracture. Two views left tibia and fibula: Soft tissue swelling about the ankle with potential old fracture de formities. No acute abnormality. Three views left foot: Normal. IMPRESSION: No radiographic evidence of acute fracture of the right shoulder, right elbow, lumbosacr al spine, left leg or left foot. TECHNICAL DOCUMENTATION: JOB ID: [id number] Reading location - IP/workstation name: [email or web address]
--- NOTE | 2017-05-24 13:52 | RADIOLOGY REPORT (SQ) ---
EXAM DESCRIPTION: ELBOW RIGHT OVER 2 VIEWS; FOOT LEFT COMPLETE; L SPINE WHOLE; TIBIA FIBULA LEFT; SH OULDER RIGHT 2 OR MORE VIEWS COMPLETED DATE/TIME: 05/24/2017 1:38 pm REASON FOR STUDY: fall COMPARISON: None. FINDINGS: Three views right shoulder: Normal. Four views right elbow: No evidence of displaced fracture or dislocation. No joint effusion. Five views lumbosacral spine: No malalignment or fracture. Two views left tibia and fibula: Soft tissue swelling about the ankle with potential old fracture de formities. No acute abnormality. Three views left foot: Normal. IMPRESSION: No radiographic evidence of acute fracture of the right shoulder, right elbow, lumbosacr al spine, left leg or left foot. TECHNICAL DOCUMENTATION: JOB ID: [id number] Reading location - IP/workstation name: [email or web address]
--- NOTE | 2017-05-24 13:52 | RADIOLOGY REPORT (SQ) ---
EXAM DESCRIPTION: ELBOW RIGHT OVER 2 VIEWS; FOOT LEFT COMPLETE; L SPINE WHOLE; TIBIA FIBULA LEFT; SH OULDER RIGHT 2 OR MORE VIEWS COMPLETED DATE/TIME: 05/24/2017 1:38 pm REASON FOR STUDY: fall COMPARISON: None. FINDINGS: Three views right shoulder: Normal. Four views right elbow: No evidence of displaced fracture or dislocation. No joint effusion. Five views lumbosacral spine: No malalignment or fracture. Two views left tibia and fibula: Soft tissue swelling about the ankle with potential old fracture de formities. No acute abnormality. Three views left foot: Normal. IMPRESSION: No radiographic evidence of acute fracture of the right shoulder, right elbow, lumbosacr al spine, left leg or left foot. TECHNICAL DOCUMENTATION: JOB ID: [id number] Reading location - IP/workstation name: [email or web address]
[2017-05-24] MEDS ORDERED: OXYCODONE HCL IR 5 MG TABLET PO ONE (14:24)
[2017-05-24 14:40] VITALS: BP 135/75
== END 2017-05-24 15:06 | disposition home or self-care (01) ==
LOC: ER 11:59
DX: S80.812A Abrasion, left lower leg, initial encounter (principal); S89.92XA Unspecified injury of left lower leg, initial encounter; S46.911A Strain of unspecified muscle, fascia and tendon at shoulder and upper arm level, right arm, initial encounter; M25.562 Pain in left knee; M79.672 Pain in left foot; W17.89XA Other fall from one level to another, initial encounter; F17.200 Nicotine dependence, unspecified, uncomplicated
CPT/HCPCS: 72110; 90715; 99283

== ENCOUNTER 2017-09-03 14:53 | Emergency (ER) | payer SELFPAY ==
--- NOTE | 2017-09-03 16:09 | ER Document Report ---
ED Medical Screen (RME) - General Chief Complaint: Headache Stated Complaint: HEADACHE Time Seen by Provider: 09/03/17 15:54 Mode of Arrival: Ambulatory Information source: Patient Notes: 35-year-old female with history of subarachnoid hemorrhage, cerebral aneurysm, hypertension presents with complaint of worsening headache, upper extremity paresthesias as well as lower extremity paresthesias. Patient states that she had a subarachnoid hemorrhage in 2011. She states at that time there were 3 aneurysms for which 2 were coiled but the remaining 1 is operable per the patient. Patient states that she has chronic headaches but this is worse than her normal headache. She has associated nausea, photophobia. She denies any recent head injury. I have greeted and performed a rapid initial assessment of this patient. A comprehensive ED assessment and evaluation of the patient including analysis of labs and imaging ( if obtained) and completion of medical decision making will be conducted by an additional ED provider. PHYSICAL EXAMINATION: GENERAL: Well-appearing, well-nourished and in no acute distress. HEAD: Atraumatic, normocephalic. EYES: Pupils equal round extraocular movements intact, conjunctiva are normal. ENT: Nares patent NECK: Normal range of motion LUNGS: No respiratory distress Musculoskeletal: Normal range of motion NEUROLOGICAL: Normal speech, normal gait. PSYCH: Normal mood, normal affect. SKIN: Warm, Dry, normal turgor, no rashes or lesions noted. TRAVEL OUTSIDE OF THE [place] IN LAST 30 DAYS: No - Related Data Allergies/Adverse Reactions: morphine [Morphine] Allergy (Intermediate, Verified 09/03/17 14:54) Hives ibuprofen [Ibuprofen] Allergy (Verified 09/03/17 14:54) propoxyphene napsylate [From Darvocet-N 100] Allergy (Verified 09/03/17 14:54) Hives Past Medical History - Social History Chew tobacco use (# tins/day): No Frequency of alcohol use: Occasional Drug Abuse: Marijuana - Past Medical History Cardiac Medical History: Reports: Hx Hypercholesterolemia, Hx Hypertension Pulmonary Medical History: Reports: Hx Bronchitis Neurological Medical History: Reports: Hx Cerebrovascular Accident - anuerysm x 2, subarachnoid hemorrhage, Hx Migraine Endocrine Medical History: Reports: Hx Diabetes Mellitus Type 2 Renal/ Medical History: Denies: Hx Peritoneal Dialysis Malignancy Medical History: Reports: Hx Cervical Cancer GI Medical History: Reports: Hx Gastroesophageal Reflux Disease, Hx Colonoscopy , Hx Endoscopy Musculoskeltal Medical History: Reports Hx Arthritis, Reports Hx Fibromyalgia, Reports Hx Musculoskeletal Trauma Psychiatric Medical History: Reports: Hx Anxiety, Hx Depression, Hx Post Traumatic Stress Disorder Past Surgical History: Reports: Hx Gynecologic Surgery - ablation, Hx Hysterectomy, Hx Neurologic Surgery, Hx Tubal Ligation - Immunizations Immunizations up to date: No Hx Diphtheria, Pertussis, Tetanus Vaccination: No Physical Exam - Vital signs Vitals: Temp Pulse Resp BP Pulse Ox 98.3 F 65 20 149/83 H 98 09/03/17 15:03 09/03/17 15:03 09/03/17 15:03 09/03/17 15:03 09/03/17 15:03 Course - Vital Signs Vital signs: Temp Pulse Resp BP Pulse Ox 98.3 F 65 20 149/83 H 98 09/03/17 15:03 09/03/17 15:03 09/03/17 15:03 09/03/17 15:03 09/03/17 15:03
[2017-09-03 17:29] LABS: ABSOLUTE EOSINOPHILS # (AUTO) 0.1 10^3/uL (0.0-0.6); ABSOLUTE LYMPHOCYTES (AUTO) 2.5 10^3/uL (0.5-4.7); ABSOLUTE MONOCYTES (AUTO) 0.4 10^3/uL (0.1-1.4); ABSOLUTE NEUT (AUTO) 2.1 10^3/uL (1.7-8.2); BASOPHILS % (AUTO) 0.8 % (0-2); EOSINOPHILS % (AUTO) 1.5 % (0-6); HEMATOCRIT 44.1 % (36.0-47.0); HEMOGLOBIN 14.8 g/dL (12.0-15.5); LYMPHOCYTES % (AUTO) 48.9 % (13-45); MEAN CORPUSCULAR HEMOGLOBIN 28.4 pg (27.0-33.4); MEAN CORPUSCULAR HGB CONC 33.5 g/dL (32.0-36.0); MEAN CORPUSCULAR VOLUME 85 fl (80-97); MONOCYTES % (AUTO) 7.1 % (3-13); PLATELET COUNT 158 10^3/uL (150-450); RED BLOOD COUNT 5.21 10^6/uL (3.72-5.28); RED CELL DISTRIBUTION WIDTH 13.6 % (11.5-14.0); SEGMENTED NEUTROPHILS % (AUTO) 41.7 % (42-78); TOTAL CELLS COUNTED % (AUTO) 100 %; WHITE BLOOD COUNT 5.1 10^3/uL (4.0-10.5)
[2017-09-03] MEDS ORDERED: METOCLOPRAMIDE HCL INJ/PF 10 MG/2 ML SDV IV ONE (17:31)
[2017-09-03] MEDS ORDERED: HYDROMORPHONE HCL INJ/PF 2 MG/ML AMPULE IV ONE (17:32)
[2017-09-03] MEDS ORDERED: DIPHENHYDRAMINE HCL 50 MG/ML VIAL IV ONE (17:32)
[2017-09-03 17:52] LABS: ALANINE AMINOTRANSFERASE 16 U/L (9-52); ALKALINE PHOSPHATASE 67 U/L (38-126); ANION GAP 11 (5-19); ASPARTATE AMINO TRANSFERASE 15 U/L (14-36); BILIRUBIN,DIRECT 0.3 mg/dL (0.0-0.4); BILIRUBIN,TOTAL 0.3 mg/dL (0.2-1.3); BLOOD UREA NITROGEN 20 mg/dL (7-20); CALCIUM 9.8 mg/dL (8.4-10.2); CARBON DIOXIDE 26 mmol/L (22-30); CHLORIDE 109 mmol/L (98-107); GLUCOSE 96 mg/dL (75-110); POTASSIUM 4.1 mmol/L (3.6-5.0); SODIUM 145.8 mmol/L (137-145); TOTAL PROTEIN 6.9 g/dL (6.3-8.2)
--- NOTE | 2017-09-03 18:00 | ER Document Report ---
ED General - General Chief Complaint: Headache Stated Complaint: HEADACHE Time Seen by Provider: 09/03/17 15:54 Mode of Arrival: Ambulatory Information source: Patient Notes: This is a 51-year-old female with a history of cerebral aneurysms and migraine headaches who presents to the emergency room with headache consistent with previous headache. TRAVEL OUTSIDE OF THE [place] IN LAST 30 DAYS: No - HPI Onset: Last week Onset/Duration: Gradual Quality of pain: Dull Severity: Moderate Pain Level: 2 Associated symptoms: Headache. denies: Chest pain, Fever, Shortness of breath Exacerbated by: Denies Relieved by: Denies Similar symptoms previously: Yes Recently seen / treated by doctor: Yes - Related Data Allergies/Adverse Reactions: morphine [Morphine] Allergy (Intermediate, Verified 09/03/17 14:54) Hives ibuprofen [Ibuprofen] Allergy (Verified 09/03/17 14:54) propoxyphene napsylate [From Darvocet-N 100] Allergy (Verified 09/03/17 14:54) Hives Past Medical History - General Information source: Patient - Social History Smoking Status: Current Every Day Smoker Chew tobacco use (# tins/day): No Frequency of alcohol use: Occasional Drug Abuse: Marijuana Family History: CAD, COPD, CVA, DM, Hyperlipidemia, Hypertension, Malignancy, Thyroid Disfunction Patient has suicidal ideation: No Patient has homicidal ideation: No - Past Medical History Cardiac Medical History: Reports: Hx Hypercholesterolemia, Hx Hypertension Pulmonary Medical History: Reports: Hx Bronchitis Neurological Medical History: Reports: Hx Cerebrovascular Accident - anuerysm x 2, subarachnoid hemorrhage, Hx Migraine Endocrine Medical History: Reports: Hx Diabetes Mellitus Type 2 Renal/ Medical History: Denies: Hx Peritoneal Dialysis Malignancy Medical History: Reports: Hx Cervical Cancer GI Medical History: Reports: Hx Gastroesophageal Reflux Disease, Hx Colonoscopy , Hx Endoscopy Musculoskeltal Medical History: Reports Hx Arthritis, Reports Hx Fibromyalgia, Reports Hx Musculoskeletal Trauma Psychiatric Medical History: Reports: Hx Anxiety, Hx Depression, Hx Post Traumatic Stress Disorder Past Surgical History: Reports: Hx Gynecologic Surgery - ablation, Hx Hysterectomy, Hx Neurologic Surgery, Hx Tubal Ligation - Immunizations Immunizations up to date: No Hx Diphtheria, Pertussis, Tetanus Vaccination: No Review of Systems - Review of Systems Constitutional: denies: Chills, Fever EENT: No symptoms reported Cardiovascular: No symptoms reported Respiratory: No symptoms reported Gastrointestinal: No symptoms reported Genitourinary: No symptoms reported Female Genitourinary: No symptoms reported Musculoskeletal: No symptoms reported Skin: No symptoms reported Hematologic/Lymphatic: No symptoms reported Neurological/Psychological: See HPI Physical Exam - Vital signs Vitals: Temp Pulse Resp BP Pulse Ox 98.3 F 65 20 149/83 H 98 09/03/17 15:03 09/03/17 15:03 09/03/17 15:03 09/03/17 15:03 09/03/17 15:03 Notes: Physical exam: GENERAL: 51-year-old female, alert and oriented 3, no acute distress HEAD: Atraumatic, normocephalic. EYES: Pupils equal round and reactive to light, extraocular movements intact, sclera anicteric, conjunctiva are normal. ENT: TMs normal, nares patent, oropharynx clear without exudates. Moist mucous membranes. NECK: Normal range of motion, supple without obvious mass or evidence of meningismus. LUNGS: Breath sounds clear to auscultation bilaterally and equal. No wheezes rales or rhonchi. HEART: Regular rate and rhythm without murmurs, rubs or gallops. ABDOMEN: Soft, normoactive bowel sounds. No tenderness to palpation. No guarding, no rebound. No masses appreciated. EXTREMITIES: Normal range of motion, no pitting or edema. No clubbing or cyanosis. NEUROLOGICAL: Cranial nerves II through XII grossly intact. Normal speech, moving all extremities. Motor 5/5, sensory grossly intact, cerebellar (finger to nose) good, reflexes symmetrical. Neck is supple. PSYCH: Normal mood, normal affect. SKIN: Warm, Dry, normal turgor, no rashes or lesions noted. Course - Vital Signs Vital signs: Temp Pulse Resp BP Pulse Ox 97.7 F 60 18 166/96 H 100 09/03/17 19:02 09/03/17 19:02 09/03/17 19:02 09/03/17 19:02 09/03/17 19:02 - Laboratory Result Diagrams: 09/03/17 17:15 09/03/17 17:15 Laboratory results interpreted by me: 09/03/17 09/03/17 17:15 17:15 Seg Neutrophils % 41.7 L Lymphocytes % 48.9 H Sodium 145.8 H Chloride 109 H - Diagnostic Test Radiology reviewed: Image reviewed, Reports reviewed - CTA of the neck and head shows no significant change Discharge - Discharge Clinical Impression: Headache Condition: Stable Disposition: HOME, SELF-CARE Instructions: Use of Diphenhydramine, Headache ([facility]), Oral Narcotic Medication ([facility]), Reglan ([facility]) Additional Instructions: As we discussed, and the CTA of the head and neck look good today. I would follow-up with your neurologist or neurosurgeon in [place]. Continue current medicines. Take pain medicine as needed. The pain medicine you're taking prescribed as a narcotic. There are several important things you should know about this medicine: 1. This medicine contains Tylenol: It is important that you do not take Tylenol (or acetaminophen) while on this medicine. Tylenol is metabolized by the liver and taking too much Tylenol (acetaminophen) can lay to liver damage and even liver failure. 2. Taking narcotics for too long can lead to physical and mental dependence. Take this medicine only if really needed and in the lowest quantity to achieve pain relief. 3. Do not drink alcohol while on this medicine. Alcohol interacts with narcotics and the combination can be dangerous. 4. Do not drive or operate machinery while on this medicine. 5. Narcotics do cause constipation, so drink plenty of fluids and daily stool softeners. Prescriptions: Oxycodone HCl/Acetaminophen [Percocet 5-325 mg Tablet] 1 - 2 tab PO ASDIR PRN # 25 tablet PRN Reason:
--- NOTE | 2017-09-03 18:58 | RADIOLOGY REPORT (SQ) ---
EXAM DESCRIPTION: CTA HEAD COMPLETED DATE/TIME: 09/03/2017 6:18 pm REASON FOR STUDY: Worsening headache with history of subarachnoid he COMPARISON: 05/01/2017. TECHNIQUE: Axial images acquired through the brain without and with intravenous contrast. Images re viewed with bone, brain and subdural windows. Additional sagittal and coronal reconstructions were g enerated. Images stored on PACS. CT angio [place] was performed. Thin section postcontrast CT images were reviewed with maxim um intensity projected images of the [place] in multiple orientations. All CT scanners at this facility use dose modulation, iterative reconstruction, and/or weight based d osing when appropriate to reduce radiation dose to as low as reasonably achievable (ALARA). [facility]: Dose Right [facility]: CareDose [facility]: Dose Right [facility]: Teradose 4D [facility]: [employer] CONTRAST TYPE AND DOSE: contrast/concentration: Isovue 370.00 mg/ml; Total Contrast Delivered: 70.0 ml; Total Saline Delivered: 74.0 ml RENAL FUNCTION: BUN 20 creatinine 0.85. RADIATION DOSE: . LIMITATIONS: Metallic artifact from aneurysm clips. FINDINGS: VENTRICLES: Normal size and contour. CEREBRUM: No masses. No hemorrhage. No midline shift. Old area of decreased attenuation in the lef t lentiform nucleus. No evidence for acute infarction. Normal gruber/white matter differentiation. No areas of low density in the white matter. CEREBELLUM: No masses. No hemorrhage. No alteration of density. No evidence for acute infarction. No enhancing lesions. EXTRA-AXIAL SPACES: No fluid collections. No enhancing lesions. ORBITS AND GLOBE: No intra- or extraconal masses. Normal contour of globe without masses. CALVARIUM: No fracture. PARANASAL SINUSES: No fluid or mucosal thickening. SOFT TISSUES: No mass or hematoma. OTHER: No other significant finding. CTA COW: [place]: Artifact from surgical clips at the anterior [place] limits evaluation of the origin of the anterior cerebral arteries. The anterior, middle, posterior cerebral arteries are otherwise patent as visualized. No evidence of aneurysm or focal stenosis. POSTERIOR CIRCULATION: The distal vertebral arteries are patent as is the basilar artery. No aneurysm . OTHER: No other significant finding. IMPRESSION: STABLE OLD AREA OF DECREASED ATTENUATION IN THE LEFT LENTIFORM NUCLEUS, MOST LIKELY DUE TO AN OLD INFARCT. NO ACUTE FINDINGS IN THE BRAIN. ANEURYSM CLIPS IN THE ANTERIOR [place] RESULTING IN ARTIFACT AND LIMITED VISUALIZATION OF TH E ORIGIN THE ANTERIOR CEREBRAL ARTERIES. OTHERWISE UNREMARKABLE CTA OF THE BRAIN. EVIDENCE OF ACUTE STROKE: NO. TECHNICAL DOCUMENTATION: JOB ID: [id number] Quality ID # 436: Final reports with documentation of one or more dose reduction techniques (e.g., Au tomated exposure control, adjustment of the mA and/or kV according to patient size, use of iterative reconstruction technique) 2010 [employer]- All Rights Reserved Reading location - IP/workstation name: [email or web address]
--- NOTE | 2017-09-03 19:01 | RADIOLOGY REPORT (SQ) ---
EXAM DESCRIPTION: CTA NECK COMPLETED DATE/TIME: 09/03/2017 6:18 pm REASON FOR STUDY: Worsening headache with history of subarachnoid he COMPARISON: None. TECHNIQUE: Axial dynamic scanning technique with dynamic contrast enhancement through the extra-pattern scratcher nial carotid and vertebral arteries. Multiplanar reconstruction. 3-D MIPS and Volume-rendered imag es acquired at the workstation and saved to PACS. Images are reviewed in soft tissue, bone, lung w indows. All CT scanners at this facility use dose modulation, iterative reconstruction, and/or weight based d osing when appropriate to reduce radiation dose to as low as reasonably achievable (ALARA). [facility]: Dose Right [facility]: CareDose [facility]: Dose Right [facility]: Teradose 4D [facility]: [employer] CONTRAST TYPE AND DOSE: 70 mL Isovue 370- low osmolar. RENAL FUNCTION: BUN 20 creatinine 0.85. LIMITATIONS: None. FINDINGS: AORTIC ARCH: Normal three-vessel origin. Bilateral subclavian arteries are patent. No d issection. RIGHT CAROTIDS: Patent common, internal and external carotid arteries without suggestion of significa nt stenosis or irregular plaque. No dissection. RIGHT VERTEBRAL: Patent. No dissection. LEFT CAROTIDS: Patent common, internal and external carotid arteries without suggestion of significan t stenosis or irregular plaque. No dissection. LEFT VERTEBRAL: Patent. No dissection. OTHER: No other significant finding. OTHER: 3-D reconstructions confirm findings. IMPRESSION: NORMAL CTA OF THE EXTRA-CRANIAL CAROTID AND VERTEBRAL ARTERIES. COMMENT: Quality ID #[id number]: Measurements of distal internal carotid diameter were used as the denomina tor for stenosis measurement. TECHNICAL DOCUMENTATION: JOB ID: [id number] Quality ID # 436: Final reports with documentation of one or more dose reduction techniques (e.g., Au tomated exposure control, adjustment of the mA and/or kV according to patient size, use of iterative reconstruction technique) 2010 [employer]- All Rights Reserved Reading location - IP/workstation name: [email or web address]
--- NOTE | 2017-09-03 19:09 | ER Document Report ---
ED General - General Chief Complaint: Headache Stated Complaint: HEADACHE Time Seen by Provider: 09/03/17 15:54 Mode of Arrival: Ambulatory Information source: Patient TRAVEL OUTSIDE OF THE [place] IN LAST 30 DAYS: No - Related Data Allergies/Adverse Reactions: morphine [Morphine] Allergy (Intermediate, Verified 09/03/17 14:54) Hives ibuprofen [Ibuprofen] Allergy (Verified 09/03/17 14:54) propoxyphene napsylate [From Darvocet-N 100] Allergy (Verified 09/03/17 14:54) Hives Past Medical History - General Information source: Patient - Social History Smoking Status: Current Every Day Smoker Chew tobacco use (# tins/day): No Frequency of alcohol use: Occasional Drug Abuse: Marijuana Family History: CAD, COPD, CVA, DM, Hyperlipidemia, Hypertension, Malignancy, Thyroid Disfunction Patient has suicidal ideation: No Patient has homicidal ideation: No - Past Medical History Cardiac Medical History: Reports: Hx Hypercholesterolemia, Hx Hypertension Pulmonary Medical History: Reports: Hx Bronchitis Neurological Medical History: Reports: Hx Cerebrovascular Accident - anuerysm x 2, subarachnoid hemorrhage, Hx Migraine Endocrine Medical History: Reports: Hx Diabetes Mellitus Type 2 Renal/ Medical History: Denies: Hx Peritoneal Dialysis Malignancy Medical History: Reports: Hx Cervical Cancer GI Medical History: Reports: Hx Gastroesophageal Reflux Disease, Hx Colonoscopy , Hx Endoscopy Musculoskeltal Medical History: Reports Hx Arthritis, Reports Hx Fibromyalgia, Reports Hx Musculoskeletal Trauma Psychiatric Medical History: Reports: Hx Anxiety, Hx Depression, Hx Post Traumatic Stress Disorder Past Surgical History: Reports: Hx Gynecologic Surgery - ablation, Hx Hysterectomy, Hx Neurologic Surgery, Hx Tubal Ligation - Immunizations Immunizations up to date: No Hx Diphtheria, Pertussis, Tetanus Vaccination: No Physical Exam - Vital signs Vitals: Temp Pulse Resp BP Pulse Ox 98.3 F 65 20 149/83 H 98 09/03/17 15:03 09/03/17 15:03 09/03/17 15:03 09/03/17 15:03 09/03/17 15:03 Course - Vital Signs Vital signs: Temp Pulse Resp BP Pulse Ox 97.7 F 60 18 166/96 H 100 09/03/17 19:02 09/03/17 19:02 09/03/17 19:02 09/03/17 19:02 09/03/17 19:02 - Laboratory Result Diagrams: 09/03/17 17:15 09/03/17 17:15 Laboratory results interpreted by me: 09/03/17 09/03/17 17:15 17:15 Seg Neutrophils % 41.7 L Lymphocytes % 48.9 H Sodium 145.8 H Chloride 109 H
[2017-09-03 20:37] VITALS: BP 154/92
== END 2017-09-03 20:36 | disposition home or self-care (01) ==
LOC: ER 14:53
DX: R51 Headache (principal); F17.200 Nicotine dependence, unspecified, uncomplicated; E78.00 Pure hypercholesterolemia, unspecified; I10 Essential (primary) hypertension; E11.9 Type 2 diabetes mellitus without complications; Z85.41 Personal history of malignant neoplasm of cervix uteri; Z90.710 Acquired absence of both cervix and uterus; Z88.6 Allergy status to analgesic agent
CPT/HCPCS: 99284; 36415; 85025; 80053; 70496; 70498; J1200; J2765; J1170

== ENCOUNTER 2017-11-01 15:15 | Emergency (ER) | payer SELFPAY ==
[2017-11-01] MEDS ORDERED: KETOROLAC TROMETHAMINE 60 MG/2 ML SDV IM ONE (16:00)
--- NOTE | 2017-11-01 16:03 | ER Document Report ---
ED Medical Screen (RME) - General Chief Complaint: Stiff Neck Stated Complaint: NECK/HEAD PAIN Time Seen by Provider: 11/01/17 15:51 Notes: 52 years old female with a history of 3 cerebral aneurysm 2 of them have been clipped one is still there, taking aspirin presents today with headache. Particularly over the right side. Including the right side of the neck for the last few days. Each time she turned her neck the pain is increasing intensity. Denies any focal weakness numbness tingling sensation. On arrival blurring of vision on the right side and ringing sensation in the right ear. Examination-right cervical digastric muscle, scalene muscle and part of the trapezius muscle is extremely tender on palpation. TRAVEL OUTSIDE OF THE [place] IN LAST 30 DAYS: No - Related Data Allergies/Adverse Reactions: morphine [Morphine] Allergy (Intermediate, Verified 09/03/17 14:54) Hives ibuprofen [Ibuprofen] Allergy (Verified 09/03/17 14:54) propoxyphene napsylate [From Darvocet-N 100] Allergy (Verified 09/03/17 14:54) Hives Past Medical History - Social History Frequency of alcohol use: Rare - Past Medical History Cardiac Medical History: Reports: Hx Hypercholesterolemia, Hx Hypertension Pulmonary Medical History: Reports: Hx Bronchitis Neurological Medical History: Reports: Hx Cerebrovascular Accident - anuerysm x 2, subarachnoid hemorrhage, Hx Migraine Endocrine Medical History: Reports: Hx Diabetes Mellitus Type 2 Renal/ Medical History: Denies: Hx Peritoneal Dialysis Malignancy Medical History: Reports: Hx Cervical Cancer GI Medical History: Reports: Hx Gastroesophageal Reflux Disease, Hx Colonoscopy , Hx Endoscopy Musculoskeltal Medical History: Reports Hx Arthritis, Reports Hx Fibromyalgia, Reports Hx Musculoskeletal Trauma Psychiatric Medical History: Reports: Hx Anxiety, Hx Depression, Hx Post Traumatic Stress Disorder Past Surgical History: Reports: Hx Gynecologic Surgery - ablation, Hx Hysterectomy, Hx Neurologic Surgery, Hx Tubal Ligation - Immunizations Immunizations up to date: No Hx Diphtheria, Pertussis, Tetanus Vaccination: No Physical Exam - Vital signs Vitals: Temp Pulse Resp BP Pulse Ox 98.7 F 78 14 184/97 H 99 11/01/17 15:18 11/01/17 15:18 11/01/17 15:18 11/01/17 15:18 11/01/17 15:18 Course - Vital Signs Vital signs: Temp Pulse Resp BP Pulse Ox 98.7 F 78 14 184/97 H 99 11/01/17 15:18 11/01/17 15:18 11/01/17 15:18 11/01/17 15:18 11/01/17 15:18
--- NOTE | 2017-11-01 16:59 | RADIOLOGY REPORT (SQ) ---
EXAM DESCRIPTION: CT HEAD WITHOUT COMPLETED DATE/TIME: 11/01/2017 4:50 pm REASON FOR STUDY: Cerebral aneurysm/headache COMPARISON: 2016, 09/03/2017 TECHNIQUE: Axial images acquired through the brain without intravenous contrast. Images reviewed wi th bone, brain and subdural windows. Additional sagittal and coronal reconstructions were generated. Images stored on PACS. All CT scanners at this facility use dose modulation, iterative reconstruction, and/or weight based d osing when appropriate to reduce radiation dose to as low as reasonably achievable (ALARA). [facility]: Dose Right [facility]: CareDose [facility]: Dose Right [facility]: Teradose 4D [facility]: [employer] RADIATION DOSE: CT Rad equipment meets quality standard of care and radiation dose reduction techniq ues were employed. CTDIvol: 53.2 mGy. DLP: 1070 mGy-cm. mGy. LIMITATIONS: None. FINDINGS: VENTRICLES: Prominent. CEREBRUM: No masses. No hemorrhage. No midline shift. Areas of low density in the white matter mos t likely due to chronic micro-vascular ischemic change. No evidence for acute infarction. CEREBELLUM: No masses. No hemorrhage. No alteration of density. No evidence for acute infarction. EXTRAAXIAL SPACES: Mild age-related involutional change. No fluid collections. No masses. ORBITS AND GLOBE: No intra- or extraconal masses. Normal contour of globe without masses. CALVARIUM: No fracture. PARANASAL SINUSES: No fluid or mucosal thickening. SOFT TISSUES: No mass or hematoma. OTHER: Extensive metal in the region of the [place] from previous aneurysm clips. IMPRESSION: MILD CHRONIC CHANGES OF ATROPHY AND MICROVASCULAR ISCHEMIA. Aneurysmal clips. NO ACUTE PROCESS. EVIDENCE OF ACUTE STROKE: NO. TECHNICAL DOCUMENTATION: JOB ID: [id number] Quality ID # 436: Final reports with documentation of one or more dose reduction techniques (e.g., Au tomated exposure control, adjustment of the mA and/or kV according to patient size, use of iterative reconstruction technique) 2010 [employer]- All Rights Reserved Reading location - IP/workstation name: [email or web address]
[2017-11-01] MEDS ORDERED: BUTALB/ACETAMINOPHEN/CAFFEINE 1 TAB EACH PO ONE (18:13)
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
[2017-11-01 18:48] VITALS: BP 162/88
--- NOTE | 2017-11-02 07:36 | EKG REPORT ---
SEVERITY:- ABNORMAL ECG - SINUS RHYTHM ST ELEVATION SUGGESTS PERICARDITIS : Confirmed by: Jose G Trujillo MD 02-Nov-2017 07:36:00
== END 2017-11-01 18:48 | disposition home or self-care (01) ==
LOC: ER 15:15
DX: G44.209 Tension-type headache, unspecified, not intractable (principal); M54.2 Cervicalgia; E78.00 Pure hypercholesterolemia, unspecified; I10 Essential (primary) hypertension; Z86.73 Personal history of transient ischemic attack (TIA), and cerebral infarction without residual deficits; Z90.710 Acquired absence of both cervix and uterus
CPT/HCPCS: 93005; 99284; 96372; 70450; 93010; J3490; J1885

== ENCOUNTER 2018-01-29 20:19 | Emergency (ER) | payer SELFPAY ==
--- NOTE | 2018-01-29 21:56 | RADIOLOGY REPORT (SQ) ---
EXAM DESCRIPTION: CT HEAD WITHOUT IV CONTRAST COMPLETED DATE/TME: 01/29/2018 00:00 CLINICAL HISTORY: 52 years, Female, headache, hx of anuerism COMPARISON: EXAM DESCRIPTION: CLINICAL HISTORY: headache, hx of anuerism COMPARISON: None Available TECHNIQUE: Contiguous axial CT images of the head were obtained. Coronal and sagittal reconstructions were created from the axial data. This exam was performed according to our departmental dose-optimization program, which includes automated exposure control, adjustment of the mA and/or kV according to patient size and/or use of iterative reconstruction technique. FINDINGS: Metallic densities in the suprasellar region are likely aneurysm coils. Correlation with history is recommended. Poorly defined foci of decreased attenuation do not exert significant mass effect on surrounding structures and are likely sequela of prior insult, most likely on the basis of small vessel disease. There is no evidence of acute mass, mass effect, midline shift or hemorrhage. The ventricles and extra-axial CSF spaces are unremarkable. The brain parenchyma appears normal for the patient's age. No acute abnormalities of the bones is seen. IMPRESSION: No acute intracranial abnormality. TECHNIQUE: Images stored on PACS. All CT scanners at this facility use dose modulation, iterative reconstruction, and/or weight based dosing when appropriate to reduce radiation dose to as low as reasonably achievable (ALARA). [facility]: Dose Right [facility]: CareDose [facility]: Dose Right [facility]: Teradose 4D [facility]: [employer] LIMITATIONS: None. FINDINGS: IMPRESSION: TECHNICAL DOCUMENTATION: Quality ID # [id number]: Final reports with documentation of one or more dose reduction techniques (e.g., Automated exposure control, adjustment of the mA and/or kV according to patient size, use of iterative reconstruction technique) 2010 [employer]- All Rights Reserved
[2018-01-29] MEDS ORDERED: ONDANSETRON 4 MG TAB.RAPDIS PO ONE (22:29)
--- NOTE | 2018-01-29 22:34 | ER Document Report ---
ED General <FRANCO,BRIAN - Last Filed: 01/30/18 05:42> - General TRAVEL OUTSIDE OF THE U.S. IN LAST 30 DAYS: No - HPI Patient complains to provider of: Headache and nosebleed Onset/Duration: Gradual - 3 days Quality of pain: Pressure, Throbbing Severity: Moderate Pain Level: 5 <BOSSMAN MOE - Last Filed: 01/30/18 06:44> - General Chief Complaint: Headache Stated Complaint: HEAD PAIN Time Seen by Provider: 01/29/18 22:02 - HPI Notes: 52-year-old female with past medical history of ruptured aneurysmal subarachnoid hemorrhage status post coiling x2 in 2011 and currently with one unprotected aneurysm being monitored in [place] presents to the emergency department for severe headache, neck pain, and nosebleed. She endorses that the pain is like a "hole in my head" and is much worse than her previous visit in October 2017. She denies the pain is as severe as when she had a ruptured aneurysm. Currently endorses pain 5 out of 5. Endorses neck pain that radiates into her back, nausea, vomiting x1 after eating, dizziness, and lightheadedness. CT head from [facility] shows no acute intracranial bleed. (BOSSMAN MOE) - Related Data Allergies/Adverse Reactions: morphine [Morphine] Allergy (Intermediate, Verified 09/03/17 14:54) Hives ibuprofen [Ibuprofen] Allergy (Verified 09/03/17 14:54) propoxyphene napsylate [From Darvocet-N 100] Allergy (Verified 09/03/17 14:54) Hives Past Medical History - General Information source: Patient - Social History Smoking Status: Current Every Day Smoker Cigarette use (# per day): Yes - 0.5 ppd x 35 years Frequency of alcohol use: Occasional Drug Abuse: Marijuana Lives with: Spouse/Significant other Family History: CAD, COPD, CVA, DM, Hyperlipidemia, Hypertension, Malignancy, Thyroid Disfunction Patient has suicidal ideation: No Patient has homicidal ideation: No - Past Medical History Cardiac Medical History: Reports: Hx Hypercholesterolemia, Hx Hypertension Pulmonary Medical History: Reports: Hx Bronchitis Neurological Medical History: Reports: Hx Cerebrovascular Accident - anuerysm x 2, subarachnoid hemorrhage, Hx Migraine Endocrine Medical History: Reports: Hx Diabetes Mellitus Type 2 Renal/ Medical History: Denies: Hx Peritoneal Dialysis Malignancy Medical History: Reports: Hx Cervical Cancer GI Medical History: Reports: Hx Gastroesophageal Reflux Disease, Hx Colonoscopy , Hx Endoscopy Musculoskeletal Medical History: Reports Hx Arthritis, Reports Hx Fibromyalgia, Reports Hx Musculoskeletal Trauma Psychiatric Medical History: Reports: Hx Anxiety, Hx Depression, Hx Post Traumatic Stress Disorder Past Surgical History: Reports: Hx Gynecologic Surgery - ablation, Hx Hysterectomy, Hx Neurologic Surgery, Hx Tubal Ligation - Immunizations Immunizations up to date: No Hx Diphtheria, Pertussis, Tetanus Vaccination: No <BOSSMAN MOE - Last Filed: 01/30/18 06:44> Review of Systems - Review of Systems Constitutional: See HPI Cardiovascular: No symptoms reported Respiratory: No symptoms reported Gastrointestinal: Nausea, Vomiting Genitourinary: No symptoms reported Female Genitourinary: No symptoms reported Musculoskeletal: Back pain, Neck pain Skin: No symptoms reported Hematologic/Lymphatic: No symptoms reported Neurological/Psychological: Depression, Anxiety, Headaches. denies: Lost consciousness <BOSSMAN MOE - Last Filed: 01/30/18 06:44> Physical Exam - Vital signs Interpretation: Hypertensive - General General appearance: Appears well In distress: None - HEENT Head: Normocephalic Eyes: Normal Pupils: PERRL - Respiratory Respiratory status: No respiratory distress Chest status: Nontender Breath sounds: Normal Chest palpation: Normal - Cardiovascular Rhythm: Regular Heart sounds: Normal auscultation Murmur: No Pulses: Normal: Posterior tibial, Dorsalis pedis - Abdominal Inspection: Normal Distension: No distension Bowel sounds: Normal Tenderness: Nontender Organomegaly: No organomegaly - Back Back: Nontender, Tender - bilateral TTP trapezius muscles and TTP bilateral neck. No midline TTP - Extremities General upper extremity: Normal inspection, Nontender, Normal color, Normal ROM , Normal temperature General lower extremity: Normal inspection, Nontender, Normal color, Normal ROM , Normal temperature, Normal weight bearing. No: Deondre's sign - Neurological Neuro grossly intact: Yes Cognition: Normal Orientation: AAOx4 Allyson Coma Scale Eye Opening: Spontaneous [place] Coma Scale Verbal: Oriented [place] Coma Scale Motor: Obeys Commands Allyson Coma Scale Total: 15 Speech: Normal Motor strength normal: LUE, RUE, LLE, RLE Additional motor exam normals: Equal client architect, Dorsiflexion, Plantar flexion. No: Pronator drift, Weakness, Hemiplegia Sensory: Normal - Psychological Associated symptoms: Normal affect, Normal mood - Skin Skin Temperature: Warm Skin Moisture: Dry Skin Color: Normal <BOSSMAN MOE - Last Filed: 01/30/18 06:44> - Vital signs Vitals: Temp Pulse Resp BP Pulse Ox 98.1 F 67 18 197/94 H 97 01/29/18 20:31 01/29/18 20:31 01/29/18 20:31 01/29/18 20:31 01/29/18 20:31 Course - Laboratory Result Diagrams: 01/30/18 01:55 <LEÓN FRANCO - Last Filed: 01/30/18 05:42> - Laboratory Result Diagrams: 01/30/18 01:55 <BOSSMAN MOE - Last Filed: 01/30/18 06:44> - Re-evaluation Re-evalutation: 01/29/18 23:40 Patient was initially seen by the PA. For the patient's history. Patient has a history of cerebral aneurysms. 2 have been coiled. 1 of them is just being watched. She has had a headache now for 3 days that is severe anterior posterior head and into her neck. She has had similar headaches in the past in regards to her aneurysms. She is not having vomiting. She she is currently hypertensive. She does take her blood pressure medications. She is not missed any of her dosages except for she is not yet had her nighttime dose of metoprolol and therefore that was ordered as well as some other medication up with a high blood pressure. Explained to the patient the need to do a lumbar puncture to rule out subarachnoid hemorrhage. Patient is agreeable to this. The only blood thinning medication she takes is aspirin. She has had LPs in the past and understands procedure. Explained the risks and she is agreeable to the procedure. 01/30/18 01:20 I attempted LP. I was unable to get spinal fluid. I will contact interventional radiology to come and perform LP under fluoroscopy. Patient is understanding of this. Interventional radiology does request coags before they are willing to come in. Those have been ordered. I informed the nurse that these need to be drawn immediately so that we can get this performed. 01/30/18 02:57 I spoke with Satinder, registered nurse first assistant, and requested lumbar puncture under fluoroscopy. He said he will call him his radiologist to have him come in. I have contacted x-ray and spoke with Kenzie to inform her that we will need fluoroscopy for lumbar puncture. 01/30/18 05:10 LP has been performed. I am awaiting the results of the CSF. Patient still has a headache. Said the Dilaudid just felt too strong and not make her feel well. She said IV Tylenol is worked well in the past. She is also taking oral oxycodone which is also worked well. I did talk to her nursing computer operations supervisor and she says she should be able get the IV Tylenol. I therefore have ordered it. Also do ordered a dose of 5 mg of oxycodone. Hopefully this will give her some relief of her headache. 01/30/18 05:27 Still awaiting the results of LP. I just rechecked her blood pressure. Blood pressure is 133/84. 01/30/18 05:42 I called the lab because the LP results have been pending for a while. They said that they are currently working on him and hope to have the results soon. ( LEÓN FRANCO) 01/29/18 22:53 Briefly discussed patient with Dr. Franco. CT head shows no evidence of intracranial bleed, although headache started approximately 3 days ago. Return that CT is low yield and discussed with patient the option of a lumbar puncture versus CT angiogram head and neck. 01/30/18 06:24 Lumbar puncture was negative for any RBCs, blood for xanthochromia. Patient endorses her headache has improved although it is still present. She says her neck pain has improved. Negative CT head and negative LP rule out subarachnoid hemorrhage at this time. At this time patient is safe to discharge home with close follow-up. I have instructed her to call her neurologist this morning. ( BOSSMAN MOE) - Vital Signs Vital signs: Temp Pulse Resp BP Pulse Ox 98.1 F 67 18 197/94 H 97 01/29/18 20:31 01/29/18 20:31 01/29/18 20:31 01/29/18 20:31 01/29/18 20:31 - Laboratory Laboratory results interpreted by me: 01/30/18 01:55 RBC 5.43 H Plt Count 141 L Seg Neutrophils % 30.7 L Lymphocytes % 61.0 H Discharge <LEÓN FRANCO - Last Filed: 01/30/18 05:42> <BOSSMAN MOE - Last Filed: 01/30/18 06:44> - Discharge Clinical Impression: Headache Qualifiers: Headache type: unspecified Headache chronicity pattern: acute headache Intractability: intractable Qualified Code(s): R51 - Headache Condition: Stable Disposition: HOME, SELF-CARE Instructions: Headache ([facility]) Additional Instructions: You were seen in the emergency department today for severe headache. Your head CT and lumbar puncture were both negative. It is important to call your neurologist this morning to arrange a follow-up appointment. If your symptoms worsen and you develop worsening headache, sudden and severe headache, confusion , slurred speech, facial droop, weakness or numbness in any arm or leg, extreme fatigue, or other symptoms that concern you. please return to the emergency department.
[2018-01-29] MEDS ORDERED: METOCLOPRAMIDE HCL INJ/PF 10 MG/2 ML SDV IV ONE (22:35)
[2018-01-29] MEDS ORDERED: DIPHENHYDRAMINE HCL 50 MG/ML VIAL IV ONE (22:35)
[2018-01-29] MEDS ORDERED: HYDRALAZINE HCL INJ/PF 20 MG/1 ML SDV IV ONE (23:14)
[2018-01-29] MEDS ORDERED: METOPROLOL SUCCINATE 50 MG TAB.SR.24H PO ONE (23:14)
[2018-01-29] MEDS ORDERED: LIDOCAINE 4% TRANSPARENT DRESSING 5 GM KIT TP ONE (23:39)
[2018-01-29] MEDS ORDERED: LIDOCAINE 2% INJ (20 MG/ML) 20 ML MDV INJ ONE (23:39)
[2018-01-30] MEDS ORDERED: HYDROMORPHONE HCL INJ/PF 2 MG/ML AMPULE IV ONE (00:28)
[2018-01-30] MEDS ORDERED: NORMAL SALINE 1000 ML 1,000 ML IV ONE (00:41)
[2018-01-30 02:16] LABS: INTERNATIONAL RATION (INR) 0.91; PARTIAL THROMBOPLASTIN TIME 27.3 SEC (23.5-35.8); PROTHROMBIN TIME 12.7 SEC (11.4-15.4)
[2018-01-30 03:04] LABS: ABSOLUTE EOSINOPHILS # (AUTO) 0.1 10^3/uL (0.0-0.6); ABSOLUTE LYMPHOCYTES (AUTO) 3.6 10^3/uL (0.5-4.7); ABSOLUTE MONOCYTES (AUTO) 0.4 10^3/uL (0.1-1.4); ABSOLUTE NEUT (AUTO) 1.8 10^3/uL (1.7-8.2); BASOPHILS % (AUTO) 0.5 % (0-2); EOSINOPHILS % (AUTO) 1.4 % (0-6); HEMATOCRIT 46.2 % (36.0-47.0); HEMOGLOBIN 15.3 g/dL (12.0-15.5); MEAN CORPUSCULAR HEMOGLOBIN 28.2 pg (27.0-33.4); MEAN CORPUSCULAR HGB CONC 33.1 g/dL (32.0-36.0); MEAN CORPUSCULAR VOLUME 85 fl (80-97); MONOCYTES % (AUTO) 6.4 % (3-13); PLATELET COUNT 141 10^3/uL (150-450); RED BLOOD COUNT 5.43 10^6/uL (3.72-5.28); SEGMENTED NEUTROPHILS % (AUTO) 30.7 % (42-78); TOTAL CELLS COUNTED % (AUTO) 100 %; WHITE BLOOD COUNT 5.9 10^3/uL (4.0-10.5)
[2018-01-30] MEDS ORDERED: OXYCODONE HCL IR 5 MG TABLET PO ONE (05:09)
[2018-01-30 05:43] LABS: APPEARANCE ALL TUBES CLEAR; COLOR ALL TUBES COLORLESS; CSF TOTAL VOLUME 5.1 CC; CSF TUBE NUMBER 4; VOLUME TUBE 1 1.2 CC; VOLUME TUBE 2 1.2 CC; VOLUME TUBE 3 1.2 CC; VOLUME TUBE 4 1.5 CC
[2018-01-30 05:47] LABS: RED BLOOD CELL,CSF 0 /uL (0-10); WHITE BLOOD CELL,CSF 1 /uL (0-5)
[2018-01-30 05:51] LABS: APPEARANCE ALL TUBES CLEAR; COLOR ALL TUBES COLORLESS; CSF TOTAL VOLUME 5.1 CC; CSF TUBE NUMBER 1; VOLUME TUBE 1 1.2 CC; VOLUME TUBE 2 1.2 CC; VOLUME TUBE 3 1.2 CC; VOLUME TUBE 4 1.5 CC
[2018-01-30 05:52] LABS: RED BLOOD CELL,CSF 0 /uL (0-10); WHITE BLOOD CELL,CSF 1 /uL (0-5)
[2018-01-30] MEDS ORDERED: ACETAMINOPHEN 1,000 MG/100 ML RTUPB IV ONE (06:15)
[2018-01-30 07:53] VITALS: BP 145/89
--- NOTE | 2018-01-30 08:47 | RADIOLOGY REPORT (SQ) ---
EXAM DESCRIPTION: LUMBAR PUNCTURE; FLUORO/NEEDLE PLACEMENT/SPINE COMPLETED DATE/TIME: 01/30/2018 4:44 am REASON FOR STUDY: lumbar puncture COMPARISON: None. FLUOROSCOPY TIME: 13 seconds 2 images saved to PACS. TECHNIQUE: Fluoroscopic guided lumbar puncture with opening and closing pressures. LIMITATIONS: None. PROCEDURE: After written consent and assessment were obtained, the patient was brought into the fluo roscopy room and placed prone on the table. The patient's lower back was prepped in a sterile fashio n and an entry site was selected under live fluoroscopic guidance. The entry site was anesthetized wi th 1% lidocaine. A 22 gauge needle was advanced through the skin and into the thecal sac at the level of L2-L3. An opening pressure of 24 water units was obtained. After approximately 5.5ml of CSF was drained, a closing pressure of 20 water units was obtained. The needle was removed and a sterile band age was placed of the site. Specimens were sent to the lab for testing. A fluoroscopic spot image was saved to PACS confirming level access. FINDINGS: Clear CSF IMPRESSION: Lumbar puncture under fluoroscopy. No immediate complication. COMMENT: Patient medication list reviewed:Yes- Quality ID# [id number]:Eligible professional attests to docu menting in the medical record they obtained, updated, or reviewed the patient's current medications.. Quality ID 145: Final reports for procedures using fluoroscopy that document radiation exposure gabby lynette, or exposure time and number of fluorographic images (if radiation exposure indices are not avail able) TECHNICAL DOCUMENTATION: JOB ID: [id number] [employer]- All Rights Reserved Reading location - IP/workstation name: [email or web address]
--- NOTE | 2018-01-30 08:47 | RADIOLOGY REPORT (SQ) ---
EXAM DESCRIPTION: LUMBAR PUNCTURE; FLUORO/NEEDLE PLACEMENT/SPINE COMPLETED DATE/TIME: 01/30/2018 4:44 am REASON FOR STUDY: lumbar puncture COMPARISON: None. FLUOROSCOPY TIME: 13 seconds 2 images saved to PACS. TECHNIQUE: Fluoroscopic guided lumbar puncture with opening and closing pressures. LIMITATIONS: None. PROCEDURE: After written consent and assessment were obtained, the patient was brought into the fluo roscopy room and placed prone on the table. The patient's lower back was prepped in a sterile fashio n and an entry site was selected under live fluoroscopic guidance. The entry site was anesthetized wi th 1% lidocaine. A 22 gauge needle was advanced through the skin and into the thecal sac at the level of L2-L3. An opening pressure of 24 water units was obtained. After approximately 5.5ml of CSF was drained, a closing pressure of 20 water units was obtained. The needle was removed and a sterile band age was placed of the site. Specimens were sent to the lab for testing. A fluoroscopic spot image was saved to PACS confirming level access. FINDINGS: Clear CSF IMPRESSION: Lumbar puncture under fluoroscopy. No immediate complication. COMMENT: Patient medication list reviewed:Yes- Quality ID# [id number]:Eligible professional attests to docu menting in the medical record they obtained, updated, or reviewed the patient's current medications.. Quality ID 145: Final reports for procedures using fluoroscopy that document radiation exposure gabby lynette, or exposure time and number of fluorographic images (if radiation exposure indices are not avail able) TECHNICAL DOCUMENTATION: JOB ID: [id number] [employer]- All Rights Reserved Reading location - IP/workstation name: [email or web address]
== END 2018-01-30 07:53 | disposition home or self-care (01) ==
LOC: ER 20:19
DX: R51 Headache (principal); R04.0 Epistaxis; F17.210 Nicotine dependence, cigarettes, uncomplicated; E78.00 Pure hypercholesterolemia, unspecified; I10 Essential (primary) hypertension; E11.9 Type 2 diabetes mellitus without complications; Z88.6 Allergy status to analgesic agent; Z86.73 Personal history of transient ischemic attack (TIA), and cerebral infarction without residual deficits; Z90.710 Acquired absence of both cervix and uterus
CPT/HCPCS: 99284; 96361; 96374; 96375; 36415; 85025; 85610; 85730; 89050; 77003; 62270 ×2; 70450; J3490 ×2; J1200; J0360; J2765; J1170; J7030

== ENCOUNTER 2018-05-08 16:32 | Emergency (ER) | payer SELFPAY ==
[2018-05-08] MEDS ORDERED: PROCHLORPERAZINE EDISYLATE INJ 10 MG/2 ML VIAL IV ONE (18:57)
[2018-05-08] MEDS ORDERED: DIPHENHYDRAMINE HCL 50 MG/ML VIAL IV ONE (18:57)
--- NOTE | 2018-05-08 19:08 | RADIOLOGY REPORT (SQ) ---
EXAM DESCRIPTION: CT HEAD WITHOUT COMPLETED DATE/TIME: 05/08/2018 7:01 pm REASON FOR STUDY: severe headache hx of aneurysm COMPARISON: 01/29/2018 TECHNIQUE: Axial images acquired through the brain without intravenous contrast. Images reviewed wi th bone, brain and subdural windows. Additional sagittal and coronal reconstructions were generated. Images stored on PACS. All CT scanners at this facility use dose modulation, iterative reconstruction, and/or weight based d osing when appropriate to reduce radiation dose to as low as reasonably achievable (ALARA). [facility]: Dose Right [facility]: CareDose [facility]: Dose Right [facility]: Teradose 4D [facility]: Smart GoMoto RADIATION DOSE: CT Rad equipment meets quality standard of care and radiation dose reduction techniq ues were employed. CTDIvol: 53.2 mGy. DLP: 1097 mGy-cm. mGy. LIMITATIONS: None. FINDINGS: VENTRICLES: Normal size and contour. CEREBRUM: No masses. No hemorrhage. No midline shift. No evidence for acute infarction. Normal gra y/white matter differentiation. No areas of low density in the white matter. Surgical clips in area of the crow [place]. CEREBELLUM: No masses. No hemorrhage. No alteration of density. No evidence for acute infarction. EXTRAAXIAL SPACES: No fluid collections. No masses. ORBITS AND GLOBE: No intra- or extraconal masses. Normal contour of globe without masses. CALVARIUM: No fracture. PARANASAL SINUSES: Generalize maxillary and ethmoid sinus disease. SOFT TISSUES: No mass or hematoma. OTHER: No other significant finding. IMPRESSION: No acute intracranial process. EVIDENCE OF ACUTE STROKE: NO. COMMENT: Quality ID # [id number]: Final reports with documentation of one or more dose reduction techniques (e.g., Automated exposure control, adjustment of the mA and/or kV according to patient size, use of iterative reconstruction technique) TECHNICAL DOCUMENTATION: JOB ID: [id number] [employer] All Rights Reserved Reading location - IP/workstation name: [email or web address]
[2018-05-08] MEDS ORDERED: DIPHENHYDRAMINE HCL 50 MG/ML VIAL IM ONE (19:15)
[2018-05-08] MEDS ORDERED: METOCLOPRAMIDE HCL INJ/PF 10 MG/2 ML SDV IM ONE (19:18)
--- NOTE | 2018-05-08 19:48 | ER Document Report ---
ED Headache - General Chief Complaint: Headache Stated Complaint: HEADACHE Time Seen by Provider: 05/08/18 17:50 Mode of Arrival: Ambulatory Information source: Patient Notes: Patient is a 52-year-old female who presents to the emergency department with chief complaint of headache. Patient reports headache is ongoing for several days. She states chronic headaches. States this feels similar to her typical headache. She reports multiple brain aneurysms, 2 of which have had surgical intervention. Reports associated nausea and vomiting. TRAVEL OUTSIDE OF THE [place] IN LAST 30 DAYS: No - Related Data Allergies/Adverse Reactions: morphine [Morphine] Allergy (Intermediate, Verified 05/08/18 16:38) Hives ibuprofen [Ibuprofen] Allergy (Verified 05/08/18 16:38) propoxyphene napsylate [From Darvocet-N 100] Allergy (Verified 05/08/18 16:38) Hives Past Medical History - General Information source: Patient - Social History Smoking Status: Current Every Day Smoker Chew tobacco use (# tins/day): No Frequency of alcohol use: Occasional Drug Abuse: Marijuana Family History: CAD, COPD, CVA, DM, Hyperlipidemia, Hypertension, Malignancy, Thyroid Disfunction Patient has suicidal ideation: No Patient has homicidal ideation: No - Past Medical History Cardiac Medical History: Reports: Hx Hypercholesterolemia, Hx Hypertension Pulmonary Medical History: Reports: Hx Bronchitis Neurological Medical History: Reports: Hx Cerebrovascular Accident - anuerysm x 2, subarachnoid hemorrhage, Hx Migraine Endocrine Medical History: Reports: Hx Diabetes Mellitus Type 2 Renal/ Medical History: Denies: Hx Peritoneal Dialysis Malignancy Medical History: Reports: Hx Cervical Cancer GI Medical History: Reports: Hx Gastroesophageal Reflux Disease, Hx Colonoscopy, Hx Endoscopy Musculoskeletal Medical History: Reports Hx Arthritis, Reports Hx Fibromyalgia, Reports Hx Musculoskeletal Trauma Psychiatric Medical History: Reports: Hx Anxiety, Hx Depression, Hx Post Traumatic Stress Disorder Past Surgical History: Reports: Hx Gynecologic Surgery - ablation, Hx Hysterectomy, Hx Neurologic Surgery, Hx Tubal Ligation - Immunizations Immunizations up to date: No Hx Diphtheria, Pertussis, Tetanus Vaccination: No Review of Systems - Review of Systems Constitutional: No symptoms reported EENT: No symptoms reported Cardiovascular: No symptoms reported Respiratory: No symptoms reported Gastrointestinal: No symptoms reported Genitourinary: No symptoms reported Female Genitourinary: No symptoms reported Musculoskeletal: No symptoms reported Skin: No symptoms reported Hematologic/Lymphatic: No symptoms reported Neurological/Psychological: Headaches Physical Exam - Vital signs Vitals: Temp Pulse Resp BP Pulse Ox 97.9 F 79 16 166/100 H 98 05/08/18 16:47 05/08/18 16:47 05/08/18 16:47 05/08/18 16:47 05/08/18 16:47 - Notes Notes: PHYSICAL EXAMINATION: GENERAL: Well-appearing, well-nourished and in no acute distress. HEAD: Atraumatic, normocephalic. EYES: Pupils equal round and reactive to light, extraocular movements intact, conjunctiva are normal. ENT: Nares patent, oropharynx clear without exudates. Moist mucous membranes. NECK: Normal range of motion, supple without lymphadenopathy LUNGS: Breath sounds clear to auscultation bilaterally and equal. No wheezes rales or rhonchi. HEART: Regular rate and rhythm without murmurs ABDOMEN: Soft, nontender, nondistended abdomen. No guarding, no rebound. No masses appreciated. Female : deferred Musculoskeletal: Normal range of motion, no pitting or edema. No cyanosis. NEUROLOGICAL: Cranial nerves grossly intact. Normal speech, normal gait. Normal sensory, motor exams PSYCH: Normal mood, normal affect. SKIN: Warm, Dry, normal turgor, no rashes or lesions noted. Course - Re-evaluation Re-evalutation: Head CT is negative for any acute findings. Headache had a gradual onset and has no red flag signs. Patient reports her headache feels much better after administration of medications. Patient would like to be discharged home. Patient requesting prescription for Fioricet. - Vital Signs Vital signs: Temp Pulse Resp BP Pulse Ox 98.3 F 75 16 154/82 H 99 05/08/18 20:05 05/08/18 20:05 05/08/18 20:05 05/08/18 20:05 05/08/18 20:05 Discharge - Discharge Clinical Impression: Headache Qualifiers: Headache type: unspecified Headache chronicity pattern: episodic headache Intractability: not intractable Qualified Code(s): R51 - Headache Condition: Stable Disposition: HOME, SELF-CARE Additional Instructions: You have been seen in the Emergency Department (ED) for a headache. Please use Fioricet as needed for symptoms, but only as prescribed. As we have discussed, please follow up with your primary care doctor as soon as possible regarding today's ED visit and your headache symptoms. Call your doctor or return to the ED if you have a worsening headache, sudden and severe headache, confusion, slurred speech, facial droop, weakness or numbness in any arm or leg, extreme fatigue, or other symptoms that concern you. Prescriptions: Butalb/Acetaminophen/Caffeine [Fioricet (50-325-40 mg) Tablet] 1 tab PO Q4HP PRN #15 tab PRN Reason:
[2018-05-08 20:08] VITALS: BP 154/82
== END 2018-05-08 20:05 | disposition home or self-care (01) ==
LOC: ER 16:32
DX: R51 Headache (principal); F17.200 Nicotine dependence, unspecified, uncomplicated; E78.00 Pure hypercholesterolemia, unspecified; I10 Essential (primary) hypertension; E11.9 Type 2 diabetes mellitus without complications; Z86.73 Personal history of transient ischemic attack (TIA), and cerebral infarction without residual deficits; Z88.6 Allergy status to analgesic agent; Z85.41 Personal history of malignant neoplasm of cervix uteri; Z90.710 Acquired absence of both cervix and uterus
CPT/HCPCS: 99284; 96372; 70450; J1200; J2765

== ENCOUNTER 2018-08-20 03:42 | Emergency (ER) | payer SELFPAY ==
[2018-08-20] MEDS ORDERED: DIPH/PERTUSS(ACELL)/TETANUS VAC/PF 0.5 ML SYR (>=10YO) IM ONE (05:05)
[2018-08-20] MEDS ORDERED: OXYCODONE-ACETAMINOPHEN 5-325 MG TABLET PO ONE (05:06)
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
[2018-08-20 09:09] VITALS: BP 139/90
== END 2018-08-20 09:06 | disposition home or self-care (01) ==
LOC: ER 03:42
DX: M25.562 Pain in left knee (principal); M25.572 Pain in left ankle and joints of left foot; E78.00 Pure hypercholesterolemia, unspecified; I10 Essential (primary) hypertension; Z86.73 Personal history of transient ischemic attack (TIA), and cerebral infarction without residual deficits; E11.9 Type 2 diabetes mellitus without complications; Z85.41 Personal history of malignant neoplasm of cervix uteri; K21.9 Gastro-esophageal reflux disease without esophagitis; M19.90 Unspecified osteoarthritis, unspecified site; M79.7 Fibromyalgia; F41.9 Anxiety disorder, unspecified; F32.9 Major depressive disorder, single episode, unspecified; F43.10 Post-traumatic stress disorder, unspecified; Z90.710 Acquired absence of both cervix and uterus; Z98.51 Tubal ligation status
CPT/HCPCS: 99283; 90471; 73610; 71046; 73564; 90715; L1902